=== PATIENT | female | born 1960 | race Caucasian/White ===

== ENCOUNTER → 2017-04-11 | Outpatient (CLI) | payer BC ==
--- NOTE | 2017-04-11 14:33 | MAMMOGRAPHY REPORT ---
BILATERAL DIGITAL DIAGNOSTIC MAMMOGRAM TOMOSYNTHESIS WITH CAD AND TARGETED LEFT ULTRASOUND: 04/11/2017 CLINICAL HISTORY: 56 year old woman presents for bilateral screening mammography. She also reports n ew single episode of one drop of spontaneous left bloody nipple discharge. TECHNIQUE: Bilateral breast tomosynthesis in addition to standard 2D mammography was performed. Spot magnification CC and ML views of the left subareolar breast were also obtained. Current study was a lso evaluated with a Computer Aided Detection (CAD) system. COMPARISON: Comparison is made to exams dated: 03/17/2016 mammogram - [facility], mammogram, and 07/29/2009 mammogram. BREAST COMPOSITION: There are scattered areas of fibroglandular density in both breasts. FINDINGS: The breast parenchyma pattern is similar to prior mammograms. There is a mixed density 2.4 cm focal asymmetry in the upper outer quadrant of the right breast, that appears similar on all avai lab prior mammograms dating back to at least 2007, therefore likely benign. There are a few benign rim calcifications in the breasts. The spot magnification views of the left subareolar breast demon strate 2 loosely grouped monomorphic round microcalcifications in the subareolar breast, 2 cm from th e nipple, that appear similar dating back to at least 2012, therefore likely benign. There are no ne w suspicious clustered microcalcifications, obvious new mass or focal area of architectural distortio n bilaterally. Targeted ultrasound was performed in the periareolar and retroareolar left breast. Sonographically n ormal tissue is seen without evidence of a discrete solid or cystic mass. No intraductal mass is bakari ntified. IMPRESSION: ACR BI-RADS CATEGORY 2: BENIGN, TARGETED ULTRASOUND ACR BI-RADS CATEGORY 2: BENIGN Stable bilateral mammograms. There is no mammographic or targeted sonographic evidence of malignancy . No suspicious mammographic or sonographic abnormality is seen to explain the single episode of one drop of spontaneous bloody left nipple discharge. Therefore, clinical follow-up is recommended and consultation with a breast surgeon and or fluid cytology may be useful. Otherwise, a 1 year screenin g mammogram is recommended. The patient has been verbally notified of the results. Approximately 10% of breast cancers are not detected with mammography. A negative mammographic report should not delay biopsy if a clinically suggestive mass is present. Sylwia roman/:04/11/2017 12:28:41 Coiler Operator: Kelsey CRUZ)(Mary), [facility] letter sent: Normal 1/2 BI-RADS Code: ACR BI-RADS Category 2: Benign Ultrasound BI-RADS: ACR BI-RADS Category 2: Benign
== END | disposition home or self-care (01) ==
LOC: C.MAMM 08:23
PROVIDERS: ATTEND Family Medicine
DX: N64.52 Nipple discharge (principal)

== ENCOUNTER → 2017-04-26 | Outpatient (CLI) | payer BC ==
--- NOTE | 2017-04-26 16:23 | DIAGNOSTIC IMAGING REPORT ---
CHEST 2 VIEWS ROUTINE CLINICAL HISTORY: COUGH COMPARISON STUDY: No previous studies for comparison. FINDINGS: The cardiac and mediastinal contours are normal. There is no failure. There is no focal pulmonary consolidation. There is a 13 mm left lower lung zone nodule versus summation. Nonemergent follow-up imaging is recommended. No pleural effusions are visualized.[ IMPRESSION: 1. 13 mm left lower lung zone nodule versus summation 2. No evidence of failure. No evidence of focal pulmonary consolidation. Electronically signed by: Nico Anne M.D. 04/26/2017 4:22 PM Dictated Date/Time: 04/26/2017 4:20 PM
== END | disposition home or self-care (01) ==
LOC: C.RAD1850 15:58
PROVIDERS: ATTEND Family Medicine
DX: R05 Cough (principal); R91.8 Other nonspecific abnormal finding of lung field

== ENCOUNTER 2022-08-03 07:48 | Observation (INO) ==
--- NOTE | 2022-07-14 14:48 | PAT Medication Instructions ---
Medication Instructions Date of Service July 14, 2022 Home Medications Medication Instructions Recorded BD Ultra-Fine Gela Pen Needle 32 #100 ea 12/01/21 gauge x 5/32" (pen needle, diabetic) blood sugar diagnostic (OneTouch #100 ea 04/16/22 Verio test strips) FreeStyle Jd 2 Sensor (flash #2 ea 04/29/22 glucose sensor) metformin 1,000 mg tablet 1,000 mg PO BID #180 tabs 05/10/22 empagliflozin 10 mg tablet 10 mg PO DAILY #90 tabs 06/24/22 (Jardiance) amlodipine 5 mg tablet 5 mg PO QPM losartan 100 mg tablet 100 mg PO HS naproxen sodium 220 mg capsule 220 mg PO BID PRN Pain omeprazole 20 mg capsule,delayed release 20 mg PO QAM levothyroxine 200 mcg tablet 200 mcg PO QAM turmeric 400 mg capsule 800 mg PO QPM loratadine 10 mg tablet (Claritin) 10 mg PO QAM lovastatin 20 mg tablet 20 mg PO HS metformin 1,000 mg tablet 1,000 mg PO BID empagliflozin 10 mg tablet (Jardiance) 10 mg PO DAILY cholecalciferol (vitamin D3) 10 mcg (400 unit) tablet (Vitamin D3) 5 mcg PO HS dulaglutide 3 mg/0.5 mL subcutaneous pen injector 3 mg subcut Q7D insulin degludec 200 unit/mL (3 mL) subcutaneous pen (Tresiba FlexTouch U-200 insulin) 42 unit subcut QAM Continue as directed dulaglutide 3 mg/0.5 mL subcutaneous pen injector 3 mg subcut Q7D ASK your surgeon for instructions naproxen sodium 220 mg capsule 220 mg PO BID PRN Pain STOP taking 2 weeks before surgery (or as soon as possible if surgery is within 2 weeks) turmeric 400 mg capsule 800 mg PO QPM DO NOT take the morning of surgery loratadine 10 mg tablet (Claritin) 10 mg PO QAM metformin 1,000 mg tablet 1,000 mg PO BID STOP taking 3 days before surgery empagliflozin 10 mg tablet (Jardiance) 10 mg PO DAILY Take morning of surgery With a small sip of water, OTHERWISE NOTHING TO EAT OR DRINK AFTER MIDNIGHT: omeprazole 20 mg capsule,delayed release 20 mg PO QAM levothyroxine 200 mcg tablet 200 mcg PO QAM Take evening before surgery amlodipine 5 mg tablet 5 mg PO QPM losartan 100 mg tablet 100 mg PO HS lovastatin 20 mg tablet 20 mg PO HS metformin 1,000 mg tablet 1,000 mg PO BID cholecalciferol (vitamin D3) 10 mcg (400 unit) tablet (Vitamin D3) 5 mcg PO HS Insulin Dependent Diabetic Patients * Test your blood sugar the morning of surgery * If Blood Sugar is GREATER THAN 150, take HALF of your regular dose of: insulin degludec 200 unit/mL (3 mL) subcutaneous pen (Tresiba FlexTouch U-200 insulin) > take 21 units * If Blood Sugar is LESS THAN 150, DO NOT TAKE ANY: insulin degludec 200 unit/mL (3 mL) subcutaneous pen (Tresiba FlexTouch U-200 insulin) Other Notes If you have any questions please call us at [phone] or [phone] or [phone] or [phone]
--- NOTE | 2022-07-15 13:14 | Anesthesiology Consultation ---
Date of Service July 15, 2022 Assessment & Plan (1) Encounter for pre-operative examination: Chart Review Chart Review: Acceptable Risk for Surgery (pending PCP clearance (07/15/22)) and Patient seen in Pre Admission Testing - Awaiting PCP clearance (seen 07/15/22) - Check BSG AM DOS Per PAT appt on 07/15/22, patient recently returned from [place] on 07/12/22 (drove/was on vacation). No known Covid positive exposures or Covid related symptoms. No known Covid infection in the past 90 days. Will leave to surgeon's discretion if preop Covid testing needed. Pt fully vaccinated for Covid. Educated on importance of using Covid precautions one week prior to surgery Teaching & Discussion Pre-Anesthesia Teaching/Discussion Notes: Instructed NPO after midnight before surgery,except medications with 15 cc of water. Medication instructions provided according to the PAT guidelines. History Surgery Operation Date: 08/03/22 07:00 Proposed Procedures p Right Total Knee Arthroplasty - Will Barry Rodriguez MD Height/Weight Height: 5 ft 6 in Weight: 138.1 kg Allergies Allergy/AdvReac Type Severity Reaction Status Date / Time ketoconazole Allergy Unknown Rash Verified 07/14/22 10:40 lactose Allergy Unknown LACTOSE Verified 07/14/22 10:40 INTOLERANT latex Allergy Unknown RASH/ITCHIN Verified 07/14/22 10:40 G oxycodone Allergy Unknown HIVES/DIFFICULTY Verified 07/14/22 10:40 BREATHING seasonal AdvReac Unknown congestion Uncoded 07/14/22 10:40 Medications Home Medications Medication Instructions Recorded Confirmed Last Taken amlodipine 5 mg tablet 5 mg PO QPM 04/05/19 07/14/22 Unknown losartan 100 mg tablet 100 mg PO HS 04/05/19 07/14/22 Unknown naproxen sodium 220 mg capsule 220 mg PO BID PRN Pain 09/01/20 07/14/22 Unknown omeprazole 20 mg capsule,delayed 20 mg PO QAM 09/01/20 07/14/22 Unknown release levothyroxine 200 mcg tablet 200 mcg PO QAM 02/03/21 07/14/22 Unknown blood sugar diagnostic (OneTouch #10 ea 10/13/21 04/26/22 Unknown Ultra Blue Test Strip) lancets 33 gauge (OneTouch Delica 10/13/21 04/26/22 Unknown Lancets) loratadine 10 mg tablet (Claritin) 10 mg PO QAM 10/13/21 07/14/22 Unknown lovastatin 20 mg tablet 20 mg PO HS 10/13/21 07/14/22 Unknown BD Ultra-Fine Gela Pen Needle 32 #100 ea 12/01/21 04/26/22 Unknown gauge x 5/32" (pen needle, diabetic) blood sugar diagnostic (OneTouch #100 ea 04/16/22 04/26/22 Unknown Verio test strips) FreeStyle Jd 2 Sensor (flash #2 ea 04/29/22 Unknown glucose sensor) metformin 1,000 mg tablet 1,000 mg PO BID #180 tabs 05/10/22 07/14/22 Unknown empagliflozin 10 mg tablet 10 mg PO DAILY #90 tabs 06/24/22 07/14/22 Unknown (Jardiance) cholecalciferol (vitamin D3) 10 5 mcg PO HS 07/14/22 07/14/22 Unknown mcg (400 unit) tablet (Vitamin D3) dulaglutide 3 mg/0.5 mL 3 mg subcut Q7D 07/14/22 07/14/22 Unknown subcutaneous pen injector insulin degludec 200 unit/mL (3 44 unit subcut QAM 07/14/22 07/15/22 Unknown mL) subcutaneous pen (Tresiba FlexTouch U-200 insulin) ciclopirox 8 % topical solution See Rx Instructions .Route .COMPLEX 07/15/22 07/15/22 Unknown fluticasone propionate 50 2 spray intranasal DAILY 07/15/22 07/15/22 Unknown mcg/actuation nasal spray,suspension turmeric 1,500 mg PO DAILY 07/15/22 07/15/22 Unknown Past Medical History Medical History (Updated 07/16/22 @ 09:16 by Shani Shearer PA-C) GERD (gastroesophageal reflux disease) Well controlled with Omeprazole History of COVID-19 02/2022, while on a cruise-tested, not hosp; mild w/fatigue-given paxlovid to tx>resolved. Hx of multiple pulmonary nodules Under observation Stable per patient Hx of renal calculi Resolved without intervention Hx of seasonal allergies Hx of thyroid cancer 1999. S/p radioactive iodine. 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) Stable per patient Exercise / Class Metabolic Activity III < 4 Walking/Shop/Light housework (one flight of stairs- no chest pain mild SOB ) Past Family History Family History Father Family history of diabetes mellitus Family hx of hypertension Grandmother Family history of diabetes mellitus Uterus cancer Brother Family history of diabetes mellitus Mother Family hx of hypertension Past Surgical History Surgical History History of esophagogastroduodenoscopy (EGD) History of surgery Exploratory parathyroid surgery in 2019 (additional parathyroid gland not removed) Hx of arthroscopic knee surgery bilat. Hx of colonoscopy Hx of parathyroidectomy 2000 S/P cholecystectomy "also had endometriosis taken care of at the same time" S/P hysterectomy 2012 S/P thyroid surgery 2000 Total Thyroidectomy Secondary thyroid CA. Past Anesthesia History No Hx of Anesthesia Complications and No Family Hx of Anesthesia Complications History of PONV No Hx of PONV and No Hx of Motion Sickness Social History Smoking Status: Never smoker Do You Dip or Chew Tobacco: No Hx Alcohol Use: Yes Alcohol type: beer and hard liquor alcohol intake frequency: holidays/special occasions only Hx Substance Use: No substance use type: does not use Review of Systems Occ cough secondary to post nasal drip Hx of hiatal hernia- occ reflux - well controlled with medication Snoring- no hx of sleep study Patient denies chest pain, shortness of breath, dyspnea on exertion, wheezing, palpitations. No hx of seizures, stroke, [place]. No hx of blood clots or blood transfusions Physical Exam Vital Signs VITALS BP 151/78 P 75 TEMP 97.8 SP02 95% RESP 16 Constitutional no acute distress ENMT Mouth: no TMJ clicking Thyromental Distance: > or= 3.5 Finger Breadths (3.5) Mallampati Class: III Missing molar Crowns to molars Neck + limited neck extension (minimal) Respiratory normal respiratory effort; no respiratory distress Auscultation: lungs clear to auscultation bilaterally; no wheezes Cardiovascular Rate/Rhythm: regular rate and regular rhythm Heart Sounds: no murmur Vessels: no carotid bruit Musculoskeletal Spine: no pain with cervical ROM Extremities: extremities normal to inspection Psychiatric Orientation: alert Lab Results Anesthesia Preop Results Results Anesthesia Widget: WBC 7.63 K/ul (4.8-10.8) 07/15/22 Hgb 12.0 g/dl (12.0-16.0) 07/15/22 Hct 37.7 % (34.1-44.9) 07/15/22 Plt 355 K/uL (130-400) 07/15/22 Na 137 mmol/L (136-145) 07/15/22 K 4.0 mmol/L (3.5-5.1) 07/15/22 Cl 101 mmol/L (98-107) 07/15/22 CO2 29 mmol/L (21-32) 07/15/22 BUN 23 mg/dl (6-23) 07/15/22 Creat 0.62 mg/dl (0.6-1.2) 07/15/22 Glucose Level 200 mg/dl (70-99(Fasting)) H 07/15/22 PT 10.7 Seconds (9.0-12.0) 07/15/22 PTT 26.3 Seconds (21.0-31.0) 07/15/22 INR 1.0 (0.9-1.1) 07/15/22 HA1c 6.5 % (4.5-5.6) H 07/15/22 Urine Color Yellow 07/15/22 Urine Appearance Clear (Clear) 07/15/22 Urine pH 5.0 (4.5-7.5) 07/15/22 Urine Specific [place] 1.040 (1.000-1.030) H 07/15/22 Urine Protein Negative (Negative) 07/15/22 Urine Glucose (UA) 3+ (Negative) H 07/15/22 Urine Ketones Trace (Negative) H 07/15/22 Urine Blood Negative (Negative) 07/15/22 Urine Nitrite Negative (Negative) 07/15/22 Urine Bilirubin Negative (Negative) 07/15/22 Urine Urobilinogen Negative (Negative) 07/15/22 Urine Leukocyte Esterase Negative (Negative) 07/15/22 Blood Type A Positive 07/15/22 Antibody Screen NEGATIVE 07/15/22 Testing Electrocardiogram Date: 12/09/21 Findings: + NSR @ (70bpm ) Leftward axis. RSR' pattern in V1. PRWP. Stress Test Date: 02/05/22 Type: exercise Resting EF: 65% Negative exercise stress echocardiogram for ischemia at 95% MPHR. Negative stress EKG for ischemia at 95% MPHR. Well below average exercise tolerance for age and gender, achieved 4.6 months. Other Testing Holter monitor 12/09/2021 = Basic rhythm was NSR. Rare isolated premature ventricular contractions. Very rare premature atrial complexes with a single 4 beat run of PAT. No pauses greater than 3 seconds or evidence of AV block. CT scan of thorax 02/19/2022 = Central airways are patent. No focal consolidation or pulmonary edema. No significant change in numerous pulmonary nodules measuring up to 1.9 cm, many of which have significantly increased from 07/08/2017. No pleural effusion or pleural nodularity.
--- NOTE | 2022-08-03 06:34 | History & Physical Bridge Note ---
Date of Service August 03, 2022 History & Physical Bridge Note I have examined the patient, reviewed the History & Physical and in the interval since the performance of the History & Physical I have noted the following changes of clinical significance: no changes noted Patient is aware of the risks, is asymptomatic, and tested negative for COVID- 19.
[~2022-08-03 07:48] MED LIST: ACETAMINOPHEN 500 MG TAB PO SCH; BUPIVACAINE 0.25% 30 ML VIAL ONE; BUPIVACAINE 0.5 % 5 MG/1 ML PF 10ML VIAL ONE; CeleBREX 200 MG CAP PO SCH; LR 500ML BOLUS, THEN 15ML/HR IV SCH; LR 60ML/HR IV SCH; ROPIVACAINE 0.5% HCL/PF 150 MG, BUPIVACAINE 0.75% MPF 20 ML, EPINEPHrine 0.15 MG, Ketor... INFIL SCH; Scopolamine 1 MG TDSY TD SCH; TRANEXAMIC ACID 1,000 MG **IV Intra-op IV SCH; TRANEXAMIC ACID 1,000 MG **IV Pre-op IV SCH
[2022-08-03] MEDS ORDERED: MIDAZOLAM HCL 1 MG/ML 2ML VIAL ONE (08:53)
[2022-08-03] MEDS ORDERED: ONDANSETRON INJ 2 MG/ML 2 ML VIAL IV PRN ×2 (09:04→13:43)
[2022-08-03] MEDS ORDERED: ePHEDrine sulfate 50 MG/ML AMP IV PRN (09:04)
[2022-08-03] MEDS ORDERED: ATROPINE SULFATE 0.1 MG/ML 10ML SYR IV PRN (09:04)
[2022-08-03] MEDS ORDERED: ORTHO JOINT ANESTHETIC ONE (09:59)
[2022-08-03] MEDS ORDERED: PROPOFOL IV EMULSION 10 MG/ML 20 ML VIAL IV ONE ×4 (10:03→13:11)
[2022-08-03] MEDS ORDERED: OXYMETAZOLINE 0.05% 30 ML BTL ONE (10:35)
[2022-08-03] MEDS ORDERED: PHENYLEPHRINE 100MCG/ML 5ML SYR ONE (10:53)
[2022-08-03] MEDS ORDERED: LABETALOL HCL IV 5 MG/ML 20ML IV ONE (11:53)
[2022-08-03] MEDS ORDERED: fentaNYL citrate 100 MCG/2 ML VIAL ONE ×3 (13:09→14:13)
[2022-08-03] MEDS ORDERED: ONDANSETRON INJ 2 MG/ML 2 ML VIAL ONE (13:11)
--- NOTE | 2022-08-03 13:28 | Post Operative Brief Note ---
Immediate Post Op Note v1 Date of Surgery August 03, 2022 Pre & Post Diagnosis Operation Date: 08/03/22 10:20 Pre-Op Diagnosis: Right Knee Osteoarthritis Post-Op Diagnosis: Right Knee Osteoarthritis I identified the patient and participated in the time-out.: Yes Procedure Operation Date: 08/03/22 10:20 Actual Procedures p Right Total Knee Arthroplasty(Right) - Will Rodriguez MD Surgeon Will Rodriguez MD Automobile Accessories Salesperson LORRIE Walters PA-C (No fellow avail) Estimated Blood Loss 175 Findings Consistent with Post-Op Diagnosis Fluids 1000 cc Specimens Right knee contents Anesthesia Type MAC Spinal Regional Complications none
--- NOTE | 2022-08-03 13:29 | Operative Report ---
Post Operative Report Pre & Post Diagnosis Operation Date: 08/03/22 10:20 Pre-Op Diagnosis: Right Knee Osteoarthritis Post-Op Diagnosis: Right Knee Osteoarthritis I identified the patient and participated in the time-out.: Yes Procedure Operation Date: 08/03/22 10:20 Actual Procedures p Right Total Knee Arthroplasty, imageless computer assisted navigation(Right) - Will Rodriguez MD Surgeon Will Rodriguez MD Bleach Supervisor LORRIE Walters PA-C (No fellow avail) Estimated Blood Loss 175 Findings See Below Examined Under Anesthesia: ROM -- There was 0 degrees to 100 degrees of flexion Ligamentous examination -- revealed stable Patricia, posterior drawer, varus and valgus stress at 0 and 30 degrees. Outerbridge Type IV changes of all 3 compartments. Fluids 1000 cc Specimens Right knee contents Anesthesia Type MAC Spinal Regional Complications none Indications This is a 61-year-old female who has clinical and radiographic findings consistent with osteoarthritis of the a right knee. I recommended that a right total knee replacement be performed. The patient understands the risks of surgery, which include but not limited to: bleeding, infection, re-operation, damage to nerves and arteries, continued knee pain, knee stiffness, DVT, and . The patient understands all of these instructions and explanations, all of his questions have been satisfactorily addressed and the patient has elected to proceed. Informed consent was signed. Description of Procedure IMPLANTS: 1. Femur: Triathlon #5 Right PS. 2. Tibia: Triathlon #5 [place]aton with 12 x 50 mm stem. 3. Insert: Triathlon #5 x 13 mm PS X3 poly. 4. Patella: Triathlon A35 x 10 mm X3 poly. 5. Palacos cement. LORRIE Walters PA-C is assisting with positioning, retracting, and closure due to fellow not available. Procedure: The patient was taken to the Operating Room and placed in the supine position after spinal and adductor canal nerve block was administered. My initials and a multidisciplinary time-out were used to identify the right leg as the correct operative limb. A tourniquet was placed high in the thigh. Prior to the incision, 3 grams of intravenous Ancef were given. The right leg was then prepped and draped in a standard sterile fashion. An Esmarch was used to exsanguinate the leg and the tourniquet was inflated to 250 mmHg. It was qu ickly deflated as it was a venous tourniquet. The planned mid-line 20 cm incision was created exposing the extensor mechanism. The medial parapatellar arthrotomy was made and the patella was everted. The patella was addressed first. It was prepared by reaming from 21 mm down to 12 mm. An A35 button was found to fit best. The peg holes were made in the standard fashion. The femur was addressed next and using computer assisted OrthoAlign with 3 degrees of flexion and 0 degrees of valgus, removing 9 mm in the standard fashion for the distal cut. The cut was made and the 4-in-1 cutting block for a size 5 femur was placed. These cuts and the cuts to place the box were made in the standard fashion. Our attention was then drawn to the tibia cut with using imageless computer assisted OrthoAlign, taking 2 mm from the medial low side. A #5 Tibial baseplate fit well. A trial with a 13 mm spacer showed excellent stability in both flexion and extension, with good ligament balance, and thumbs free patellar tracking. Range of motion of 0-120 degrees. The tibial baseplate was prepped for the keel and stem. A stem was used due to some areas of soft bone, to avoid subsidence. All components were removed. Hemostasis was obtained. 90 ml of total knee cocktail were injected into the soft tissues and periosteum. All surfaces were copiously irrigated prior to placement of the components. The femoral component followed by Tibial baseplate were cemented in place and a 13 mm trial placed. Next, the patellar button was placed using the same cement. Once the cement had cured, the range of motion and stability were unchanged. The 13 mm X3 poly was placed. Again the range of motion and stability were unchanged The extensor mechanism was closed with 1-0 Vicryl and 0 Stratafix with the knee bent approximately 60 degrees in a standard fashion. The peritenon and deep fascia was closed with 2-0 Vicryl. The subcutaneous layer was closed with 3-0 Vicryl. The skin was closed with Zipline and shield. The limb was cleaned and dried. 4x4 dressing was placed over top followed by ABDs, sterile Webril, and a foot to thigh Aniket bandage. The patient was then transferred to the Recovery Room in stable condition. The sponge and needle counts were correct. POST-OP INSTRUCTIONS: The patient will be WBAT. The patient will be admitted to the hospital. Labs will be obtained during the stay. DVT prophylaxis will included Eliquis for 6 weeks, TEDs, and mechanical foot pumps. The dressing will be changed prior to their discharge or postop day #2 and covered with a Silverlon dressing, whichever comes first as long as the incision as dry. I attest to the content of the Intraoperative Record and any orders documented therein. Any exceptions are noted below.
[2022-08-03] MEDS ORDERED: PHARMACY GLYCEMIC MGMT CONSULT PRN (13:43)
[2022-08-03] MEDS ORDERED: diphenhydrAMINE 50 MG/ML VIAL IV PRN (13:43)
[2022-08-03] MEDS ORDERED: ALUMINUM/MAGNESIUM SUSP 30 ML UDC PO PRN (13:43)
[2022-08-03] MEDS ORDERED: bisacodyL 10 MG SUPP PR PRN (13:43)
[2022-08-03] MEDS ORDERED: NALOXONE HCL 0.4 MG/1 ML VIAL/CARP IV PRN (13:43)
[2022-08-03] MEDS ORDERED: METOCLOPRAMIDE HCL INJ 5 MG/ML 2 ML VIAL IV PRN (13:43)
[2022-08-03] MEDS ORDERED: HYDROmorphone INJ 0.5 MG/0.5 ML SYR IV PRN (13:43)
[2022-08-03] MEDS ORDERED: MAGNESIUM HYDROXIDE SUSP 30 ML UDC PO PRN (13:43)
--- NOTE | 2022-08-03 13:43 | Operative Report ---
Post Operative Report Pre & Post Diagnosis Operation Date: 08/03/22 10:20 Pre-Op Diagnosis: Right Knee Pain Post-Op Diagnosis: Right Knee Pain I identified the patient and participated in the time-out.: Yes Procedure Operation Date: 08/03/22 10:20 Actual Procedures p Right Total Knee Arthroplasty(Right) - Will Rodriguez MD Surgeon Will Rodriguez MD Marine Engine Mechanic LORRIE Walters PA-C (No fellow avail) Estimated Blood Loss 175 Findings Consistent with Post-Op Diagnosis Specimens none Description of Procedure I was present during the entire procedure assisting with positioning, prepping, draping, wound retraction, wound closure, and dressing application. No fellow present. Please see Dr. Rodriguez procedure note for specifics of the case. I attest to the content of the Intraoperative Record and any orders documented therein. Any exceptions are noted below.
[2022-08-03] MEDS ORDERED: NAPROXEN SODIUM 220 MG PO PRN (13:48)
[2022-08-03] MEDS ORDERED: DULAGLUTIDE 3 MG/0.5 ML SQ SCH (14:00)
[2022-08-03] MEDS: fentaNYL citrate 100 MCG/2 ML VIAL IV PRN ×2 (14:15→14:33)
--- NOTE | 2022-08-03 14:35 | XRay Report ---
XR knee RT 1 or 2V routine HISTORY: 61 years-old Female Surgical Post Op right knee total joint arthroplasty COMPARISON: 05/13/2022 TECHNIQUE: 2 views of the right knee FINDINGS: Total joint arthroplasty with patellar resurfacing. Expected postoperative soft tissue swelling with deep tissue air. No acute fracture, dislocation or other expected opaque foreign body. IMPRESSION: Total joint arthroplasty with expected postoperative changes. ACT 112: Negative or not required by law. The above report was generated using voice recognition software. It may contain grammatical, syntax o r spelling errors. Electronically signed by: Kan Solano M.D. 08/03/2022 2:34 PM
[2022-08-03] MEDS ORDERED: GLUCOSE 10 TAB/TUBE PO PRN (15:07)
[2022-08-03] MEDS ORDERED: GLUCAGON FOR INJ 1 MG VIAL SQ PRN (15:07)
[2022-08-03] MEDS ORDERED: DEXTROSE 50% 50 ML SYRINGE IV PRN (15:07)
[2022-08-03] MEDS ORDERED: CARBOHYDRATES FOR HYPOGLYCEMIA PO PRN (15:07)
[2022-08-03] MEDS ORDERED: GLUCOSE 40% GEL 15 GM TUBE PO PRN (15:07)
--- NOTE | 2022-08-03 15:07 | Hospitalist Consultation ---
Date of Consultation August 03, 2022 Assessment & Plan (1) Osteoarthritis: Patient underwent right total knee arthroplasty by Dr. Rodriguez on 10/04/2021. Aspirin twice daily was chosen for DVT prevention (2) Controlled type 2 diabetes mellitus: Patient typically is on dulaglutide empagliflozin and metformin these are all held. Patient basal bolus insulin. Should be on a diabetic diet. Patient typically is on Tresiba 44 units stable convert this to Lantus 20 units twice daily (3) Hypertension: Continues on amlodipine and losartan to be reduced by 50% to avoid post operative orthostatic hypotension. (4) Hyperlipidemia: Continue on lovastatin (5) Hypothyroidism: Continues on Synthroid last TSH check was slightly low in October 20 with a normal free T4. Patient does follow with primary care on this issue History of Present Illness Attending Physician: Will Rodriguez MD History of Present Illness 61-year-old female underwent right total knee arthroplasty on 08/03/[address] Will Rodriguez. Patient has a prehospital history of hypertension diabetes and dyslipidemia. Patient typically takes empagliflozin dulaglutide and metformin for her diabetes. She is on amlodipine and losartan for blood pressure control and lovastatin for dyslipidemia patient is stress echocardiogram February 17 which was negative for ischemia Allergies Allergy/AdvReac Type Severity Reaction Status Date / Time ketoconazole Allergy Unknown Rash Verified 08/03/22 08:08 lactose Allergy Unknown LACTOSE Verified 08/03/22 08:08 INTOLERANT latex Allergy Unknown RASH/ITCHIN Verified 08/03/22 08:08 G oxycodone Allergy Unknown HIVES/DIFFICULTY Verified 08/03/22 08:08 BREATHING seasonal AdvReac Unknown congestion Uncoded 08/03/22 08:08 Home Medications Medication Instructions Recorded Confirmed Type amlodipine 5 mg tablet 5 mg PO QPM 04/05/19 08/03/22 History losartan 100 mg tablet 100 mg PO HS 04/05/19 08/03/22 History naproxen sodium 220 mg capsule 220 mg PO BID PRN Pain 09/01/20 08/03/22 History omeprazole 20 mg capsule,delayed 20 mg PO QAM 09/01/20 08/03/22 History release levothyroxine 200 mcg tablet 200 mcg PO QAM 02/03/21 08/03/22 History blood sugar diagnostic (HigherNextTouch #10 ea 10/13/21 07/27/22 History Ultra Blue Test Strip) lancets 33 gauge (HigherNextTouch Delica 10/13/21 07/27/22 History Lancets) loratadine 10 mg tablet (Claritin) 10 mg PO QAM 10/13/21 08/03/22 History lovastatin 20 mg tablet 20 mg PO HS 10/13/21 08/03/22 History BD Ultra-Fine Gela Pen Needle 32 #100 ea 12/01/21 07/27/22 Rx gauge x 5/32" (pen needle, diabetic) blood sugar diagnostic (OneTouch #100 ea 04/16/22 07/27/22 Rx Verio test strips) FreeStyle Jd 2 Sensor (flash #2 ea 04/29/22 07/27/22 Rx glucose sensor) metformin 1,000 mg tablet 1,000 mg PO BID #180 tabs 05/10/22 08/03/22 Rx dulaglutide 3 mg/0.5 mL 3 mg subcut Q7D 07/14/22 08/03/22 History subcutaneous pen injector insulin degludec 200 unit/mL (3 44 unit subcut QAM 07/14/22 08/03/22 History mL) subcutaneous pen (Tresiba FlexTouch U-200 insulin) ciclopirox 8 % topical solution See Rx Instructions .Route .COMPLEX 07/15/22 08/03/22 History fluticasone propionate 50 2 spray intranasal DAILY 07/15/22 08/03/22 History mcg/actuation nasal spray,suspension turmeric 1,500 mg PO DAILY 07/15/22 08/03/22 History blood-glucose sensor (FreeStyle #2 ea 07/27/22 07/27/22 Rx Jd 3 Sensor device) cholecalciferol (vitamin D3) 50 50 mcg PO DAILY 07/27/22 08/03/22 History mcg (2,000 unit) capsule empagliflozin 25 mg tablet 25 mg PO DAILY #90 tabs 07/27/22 08/03/22 Rx (Jardiance) Patient History Medical History (Updated 08/03/22 @ 15:04 by Delonte Hayward MD) GERD (gastroesophageal reflux disease) Well controlled with Omeprazole History of COVID-19 02/2022, while on a cruise-tested, not hosp; mild w/fatigue-given paxlovid to tx>resolved. Hx of multiple pulmonary nodules Under observation Stable per patient Hx of renal calculi Resolved without intervention Hx of seasonal allergies Hx of thyroid cancer 1999. S/p radioactive iodine. 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 Currently under observation Hypertension Hypothyroidism Surgically induced Surgical History History of esophagogastroduodenoscopy (EGD) History of surgery Exploratory parathyroid surgery in 2019 (additional parathyroid gland not removed) Hx of arthroscopic knee surgery bilat. Hx of colonoscopy Hx of parathyroidectomy 2000 S/P cholecystectomy "also had endometriosis taken care of at the same time" S/P hysterectomy 2012 S/P thyroid surgery 2000 Total Thyroidectomy Secondary thyroid CA. 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 Beliefs That Will Affect Care: None marital status: Current Living Situation: Spouse current occupational status: employed How many Children do You have Comment: 1 Other Information That Helps Us Care for You: No Feels Safe at Home: Yes Safety Concerns: Feels Safe At This Time Assistive Devices: Glasses Review of Systems Review of Systems: Mild distress and fatigue no headache, no visual changes no speech or swallowing issues no chest pain, pressure or palpitations no shortness of breath, cough or wheezes no abdominal pain, nausea or vomiting, diarrhea or constipation no dysuria, hematuria or frequency right knee with splint in place, pain is controlled no back pain, CVA tenderness or radicular pain no bruising, bleeding or rashes no focal signs of weakness or numbness or altered sensation no complaints of anxiety or depression.. Physical Exam Physical Exam: The patient appeared well nourished and normally developed. Vital signs as documented. Head exam is normocephalic atraumatic Neck is without JVD, thyromegaly, or carotid bruits. Lungs are clear to auscultation, no focal loss of breath sounds Cardiac exam, Rhythm is regular.. No murmurs, rubs or gallops. Abdominal exam reveals normal bowel sounds, soft non tender, no masses Extremities good distal strength and sensation of both feet Neurologic exam is alert and oriented, no focal loss of strength or sensation Skin is without bruises or rashes Psychologically is without concerns for anxiety or depression.. Results & Data Results & Data ([facility]) Vital Signs (Past 12 Hours) Vital Signs Temp Pulse Pulse Resp BP Pulse Ox O2 Del Method 08/03/22 14:50 64 18 134/71 96 Nasal Cannula 08/03/22 14:40 60 14 134/67 96 Nasal Cannula 08/03/22 14:30 60 15 132/66 95 Nasal Cannula 08/03/22 14:20 61 15 129/66 97 Oxymask 08/03/22 14:10 57 L 16 111/60 97 Oxymask 08/03/22 14:00 64 12 143/68 H 98 Oxymask 08/03/22 13:50 63 12 104/43 L 98 Oxymask 08/03/22 13:46 97.5 F L 60 12 109/60 98 Oxymask 08/03/22 08:40 Room Air 08/03/22 08:19 98.1 F 80 20 146/84 H 96 Room Air O2 Flow Rate 08/03/22 14:50 2 08/03/22 14:40 2 08/03/22 14:30 2 08/03/22 14:20 3 08/03/22 14:10 3 08/03/22 14:00 6 08/03/22 13:50 6 08/03/22 13:46 6 08/03/22 08:40 08/03/22 08:19 PG Care Time/CCT Total # of Minutes Spent Total Time Spent with Patient: Total time spent is greater than 50% in coordination of care (as documented) at patient's floor/unit and/or counseling patient: Coding Level of Care Code 44523 Inpt Consult Level 3 Diagnoses Osteoarthritis M19.90 Controlled type 2 diabetes mellitus E11.9 Hypertension I10 Hyperlipidemia E78.5 Hypothyroidism E03.9
--- NOTE | 2022-08-03 16:13 | Anesthesiology Progress Note ---
Date of Service August 03, 2022 Anesthesia Post Procedure Vital Signs Vital Signs: Temp Pulse Pulse Resp BP Pulse Ox O2 Del Method 08/03/22 15:35 66 16 133/70 100 Nasal Cannula 08/03/22 15:05 63 14 122/64 98 Nasal Cannula 08/03/22 14:50 64 18 134/71 96 Nasal Cannula 08/03/22 14:40 60 14 134/67 96 Nasal Cannula 08/03/22 14:30 60 15 132/66 95 Nasal Cannula 08/03/22 14:20 61 15 129/66 97 Oxymask 08/03/22 14:10 57 L 16 111/60 97 Oxymask 08/03/22 14:00 64 12 143/68 H 98 Oxymask 08/03/22 13:50 63 12 104/43 L 98 Oxymask 08/03/22 13:46 36.4 C L 60 12 109/60 98 Oxymask 08/03/22 08:40 Room Air 08/03/22 08:19 36.7 C 80 20 146/84 H 96 Room Air O2 Flow Rate 08/03/22 15:35 2 08/03/22 15:05 2 08/03/22 14:50 2 08/03/22 14:40 2 08/03/22 14:30 2 08/03/22 14:20 3 08/03/22 14:10 3 08/03/22 14:00 6 08/03/22 13:50 6 08/03/22 13:46 6 08/03/22 08:40 08/03/22 08:19 Pain Intensity Knee: Pain Intensity: 3 Transfer of Care Handoff Completed per policy Notes Mental Status: alert / awake / arousable and participated in evaluation Patient Amnestic to Procedure: Yes Nausea / Vomiting: adequately controlled Pain: adequately controlled and improving with treatment Airway Patency, RR, SpO2: stable & adequate BP & HR: stable & adequate Hydration State: stable & adequate Neuraxial Anesthesia: was administered and sensory block is resolving Anesthetic Complications: no major complications apparent and Pt Satisfied with anesthetic care
--- NOTE | 2022-08-03 16:46 | Electrocardiogram Report ---
Test Reason : Blood Pressure : / mmHG Vent. Rate : 098 BPM Atrial Rate : 098 BPM P-R Int : 154 ms QRS Dur : 136 ms QT Int : 394 ms P-R-T Axes : 034 -41 001 degrees QTc Int : 503 ms Poor data quality, interpretation may be adversely affected Normal sinus rhythm Possible Left atrial enlargement Left axis deviation Right bundle branch block Abnormal ECG No previous ECGs available Confirmed by Stan Noe ([id number]) on 08/03/2022 4:46:00 PM Referred By: Will Rodriguez Confirmed By:Stan Noe
[2022-08-03] MEDS: ACETAMINOPHEN 500 MG TAB PO SCH ×2 (16:53→23:50)
[2022-08-03] MEDS: Scopolamine CHECK PATCH PLACEMENT SCH (16:53)
[2022-08-03] MEDS: FERROUS GLUCONATE 324 MG TAB PO SCH (16:54)
[2022-08-03] MEDS: ASCORBIC ACID 500 MG TAB PO SCH (16:54)
[2022-08-03] MEDS: SODIUM CHLORIDE 0.9% 1000ML 1,000 ML IV SCH (16:58)
[2022-08-03] MEDS ORDERED: KETOROLAC TROMETHAMINE 15 MG/ML VIAL IV SCH (18:00)
[2022-08-03] MEDS: ceFAZolin 2000MG 2,000 MG/15 ML SYR IV SCH (18:16)
[2022-08-03] MEDS: INSULIN ASPART PER UNIT SC SCH ×2 (18:16→20:54)
--- NOTE | 2022-08-03 19:15 | Pharmacy Report ---
Pharmacy Glycemic Short Note 2 - Date of Service August 03, 2022 - Glycemic Short BSG Results (Last 24 hours): 08/03/22 08/03/22 08/03/22 08:23 13:49 17:12 POC Glucose 170 H 196 H 176 H OUTPATIENT ANTIDIABETIC REGIMEN: * tresiba 44 units Qam, trulicity, jardiance, metformin * A1c 6.5% ASSESSMENT: * 61 year old now s/p right total knee arthroplasty, POD 0 - pharmacy consulted for glycemic management. Confirmed with RN that patient only took half of home basal insulin dose this morning. Post-op BSGs in 180s - diet ordered with dinner. Plan to order dose of Lantus for HS to make up home total dose outpat ient. Likely will transition back to once daily basal insulin tomorrow * Will utilize novolog scale based upon outpatient insulin dose PLAN FOR INPATIENT GLYCEMIC CONTROL: * Hold outpatient oral diabetes medications * Basal insulin * Lantus 21 units - STEREOTYPER this morning taken * Lantus 20 units x 1 hs * Bolus insulin * NovoLog per scale ACHS or Q6hrs while NPO * Goal Range: Low 110 mg/dL - High 140 mg/dL * Correction Factor: 20 mg/dL/unit * Nutritional / Prandial insulin per carb ratio of 1 unit per 6 grams CHO consumed
[2022-08-03] MEDS ORDERED: TRANEXAMIC ACID / 0.7% NACL 1,000 MG/100 ML BAG IV SCH (20:00)
[2022-08-03] MEDS: DOCUSATE SODIUM 100 MG CAP PO SCH (20:18)
[2022-08-03] MEDS ORDERED: metFORMIN HCL 500 MG TAB PO SCH (21:00)
[2022-08-03] MEDS ORDERED: SENNA 8.6 MG TAB PO SCH (21:00)
[2022-08-03] MEDS ORDERED: LANTUS PER UNIT CHARGE SQ SCH (21:00)
[2022-08-03] MEDS ORDERED: ASPIRIN 81 MG ECTAB PO SCH (21:00)
[2022-08-03] MEDS ORDERED: LOSARTAN POTASSIUM 50 MG TAB PO SCH ×2 (21:00)
[2022-08-03] MEDS ORDERED: LOVASTATIN 20 MG TAB PO SCH (21:00)
--- NOTE | 2022-08-03 23:30 | Orthopedic Progress Note ---
Date of Service August 03, 2022 Assessment & Plan (1) Osteoarthritis: Plan: POD #0 s/p Right TKA, doing as well as expected. Resume diet. WBAT with walker. OOB to chair. Continue pain control. Check labs tomorrow. Will change dressing prior to d/c to Silverlon if incision is dry; otherwise replace with DSD. DVT prophylaxis: TEDs 3 weeks, foot pumps while in hospital, Eliquis 2.5 mg BID for 6 weeks. PT/OT. Appreciate Medicine input. D/C planning. Admission and Anticipated Discharge Date Admission Date: August 03, 2022 Subjective Doing alright as long as I don't move. Review of Systems Review of Systems: All systems reviewed & are unremarkable except as noted in HPI & below Physical Exam Physical Exam: RLE: BCR < 2 sec. Sensation to light touch intact distally. Wiggling ankle and toes. Calf soft and non-tender. Dressing is clean, dry, intact. Sitting comfortably in a chair. Results & Data ([facility]) Vital Signs (Past 12 Hours) Vital Signs Temp Pulse Pulse Resp BP Pulse Ox O2 Del Method 08/03/22 23:06 37.1 C 73 16 148/73 H 92 Room Air 08/03/22 20:16 71 120/68 08/03/22 19:06 37 C 78 16 142/81 H 92 Room Air 08/03/22 16:20 Room Air 08/03/22 16:20 36.5 C 69 16 118/70 94 Room Air 08/03/22 15:35 66 16 133/70 100 Nasal Cannula 08/03/22 15:05 63 14 122/64 98 Nasal Cannula 08/03/22 14:50 64 18 134/71 96 Nasal Cannula 08/03/22 14:40 60 14 134/67 96 Nasal Cannula 08/03/22 14:30 60 15 132/66 95 Nasal Cannula 08/03/22 14:20 61 15 129/66 97 Oxymask 08/03/22 14:10 57 L 16 111/60 97 Oxymask 08/03/22 14:00 64 12 143/68 H 98 Oxymask 08/03/22 13:50 63 12 104/43 L 98 Oxymask 08/03/22 13:46 36.4 C L 60 12 109/60 98 Oxymask O2 Flow Rate 08/03/22 23:06 12/06/22 20:16 08/03/22 19:06 08/03/22 16:20 08/03/22 16:20 08/03/22 15:35 2 08/03/22 15:05 2 08/03/22 14:50 2 08/03/22 14:40 2 08/03/22 14:30 2 08/03/22 14:20 3 08/03/22 14:10 3 08/03/22 14:00 6 08/03/22 13:50 6 08/03/22 13:46 6 Laboratory Results Laboratory Results POC Glucose 213 mg/dl (70-99) H 08/03/22 20:41 SARS-CoV-2, RNA, NAAT NEGATIVE (NEGATIVE) 08/03/22 Unknown Impressions Knee X-Ray 08/03/22 13:46 XR knee RT 1 or 2V routine HISTORY: 61 years-old Female Surgical Post Op right knee total joint arthroplasty COMPARISON: 05/13/2022 TECHNIQUE: 2 views of the right knee FINDINGS: Total joint arthroplasty with patellar resurfacing. Expected postoperative soft tissue swelling with deep tissue air. No acute fracture, dislocation or other expected opaque foreign body. IMPRESSION: Total joint arthroplasty with expected postoperative changes. ACT 112: Negative or not required by law. The above report was generated using voice recognition software. It may contain grammatical, syntax or spelling errors. Electronically signed by: Kan Solano M.D. 08/03/2022 2:34 PM
[2022-08-04] MEDS: SODIUM CHLORIDE 0.9% 1000ML 1,000 ML IV SCH (02:19)
[2022-08-04] MEDS: ceFAZolin 2000MG 2,000 MG/15 ML SYR IV SCH (03:19)
[2022-08-04] MEDS ORDERED: LEVOTHYROXINE SODIUM 200 MCG TABLET PO SCH (06:30)
--- NOTE | 2022-08-04 07:17 | Hospitalist Progress Note ---
Date of Service August 04, 2022 Assessment & Plan (1) Osteoarthritis: Plan: Patient underwent right total knee arthroplasty by Dr. Rodriguez on 10/04/2021. Aspirin twice daily was chosen for DVT prevention (2) Controlled type 2 diabetes mellitus: Plan: Patient typically is on dulaglutide empagliflozin and metformin these are all held. Patient basal bolus insulin. Should be on a diabetic diet. Patient typically is on Tresiba 44 units stable convert this to Lantus 20 units twice daily (3) Hypertension: Plan: Continues on amlodipine and losartan to be reduced by 50% to avoid post operative orthostatic hypotension. (4) Hyperlipidemia: Plan: Continue on lovastatin (5) Hypothyroidism: Plan: Continues on Synthroid last TSH check was slightly low in October 20 with a normal free T4. Patient does follow with primary care on this issue Admission and Anticipated Discharge Date Admission Date: August 03, 2022 Review of Systems Review of Systems: Mild distress and fatigue no headache, no visual changes no speech or swallowing issues no chest pain, pressure or palpitations no shortness of breath, cough or wheezes no abdominal pain, nausea or vomiting, diarrhea or constipation no dysuria, hematuria or frequency no focal joint pain or swelling no back pain, CVA tenderness or radicular pain no bruising, bleeding or rashes no focal signs of weakness or numbness or altered sensation no complaints of anxiety or depression.. Physical Exam Physical Exam: The patient appeared well nourished and normally developed. Vital signs as documented. Head exam is normocephalic atraumatic Neck is without JVD, thyromegaly, or carotid bruits. Lungs are clear to auscultation, no focal loss of breath sounds Cardiac exam, Rhythm is regular.. No murmurs, rubs or gallops. Abdominal exam reveals normal bowel sounds, soft non tender, no masses Extremities are nonedematous and both pedal pulses are present Neurologic exam is alert and oriented, no focal loss of strength or sensation Skin is without bruises or rashes Psychologically is without concerns for anxiety or depression.. Results & Data Results & Data ([facility]) Vital Signs (Past 12 Hours) Vital Signs Temp Pulse Resp BP Pulse Ox O2 Del Method 08/04/22 03:33 98.8 F 73 16 113/72 95 Room Air 08/03/22 19:30 Room Air 08/03/22 23:06 98.8 F 73 16 148/73 H 92 Room Air 08/03/22 20:16 71 120/68 PG Care Time/CCT Total # of Minutes Spent Total Time Spent with Patient: Total time spent is greater than 50% in coordination of care (as documented) at patient's floor/unit and/or counseling patient: Coding Diagnoses Osteoarthritis M19.90 Controlled type 2 diabetes mellitus E11.9 Hypertension I10 Hyperlipidemia E78.5 Hypothyroidism E03.9
[2022-08-04 08:17] LABS: Hematocrit (blood only) 30.3 % (34.1-44.9); Hemoglobin 9.2 g/dl (12.0-16.0); Mean Corpuscular Hemoglobin 26.4 pg (25.0-34.0); Mean Corpuscular Hgb Conc 30.4 g/dL (32.0-36.0); Mean Corpuscular Volume 86.8 fL (80.0-100.0); Mean Platelet Volume 9.7 fL (9.4-12.3); Platelet Count 317 K/uL (130-400); RDW Coefficient of Variation 14.8 % (11.5-14.5); RDW Standard Deviation 47.4 fL (36.4-46.3); Red Blood Count 3.49 M/uL (3.93-5.22)
[2022-08-04 08:40] LABS: BUN Creatinine Ratio 39.1 (10-20); Calcium 9.7 mg/dl (8.5-10.1); Creatinine Clr Calc Pharmacy 183.1 ml/min; Est GFR (African American) 124.4 ml/min; Est GFR (Non-African American) 107.4 ml/min; Potassium 4.5 mmol/L (3.5-5.1)
[2022-08-04] MEDS: ACETAMINOPHEN 500 MG TAB PO SCH (08:50)
[2022-08-04] MEDS: INSULIN ASPART PER UNIT SC SCH ×2 (08:50→13:32)
[2022-08-04] MEDS: DOCUSATE SODIUM 100 MG CAP PO SCH (08:52)
[2022-08-04] MEDS: FERROUS GLUCONATE 324 MG TAB PO SCH (08:52)
[2022-08-04] MEDS: ASCORBIC ACID 500 MG TAB PO SCH (08:53)
[2022-08-04] MEDS ORDERED: PANTOprazole 40 MG TAB PO SCH (09:00)
[2022-08-04] MEDS ORDERED: MULTIVITAMIN TAB PO SCH (09:00)
[2022-08-04] MEDS ORDERED: FLUTICASONE PROPIONATE NA SPR 16 GM BTL NAE SCH (09:00)
[2022-08-04] MEDS ORDERED: CHOLECALCIFEROL 1,000 UNITS 25 MCG TAB PO SCH (09:00)
[2022-08-04] MEDS ORDERED: Flu Vaccine (Fluarix) 0.5mL SYR (Standard Dose) IM ONE (09:00)
[2022-08-04] MEDS ORDERED: EMPAGLIFLOZIN 25 MG TAB PO SCH (09:00)
[2022-08-04] MEDS ORDERED: NON-FORMULARY MEDICATION (Turmeric 500 MG) PO SCH (09:00)
[2022-08-04] MEDS ORDERED: APIXABAN 2.5 MG TAB PO SCH (09:00)
[2022-08-04] MEDS ORDERED: NON-FORMULARY MEDICATION (Insulin Degludec [Tresiba Flextouch U-200] 200 unit/mL (3 mL) in SQ SCH (09:00)
[2022-08-04] MEDS ORDERED: LORATADINE 10 MG TAB PO SCH (09:00)
[2022-08-04] MEDS: Scopolamine CHECK PATCH PLACEMENT SCH ×2 (09:05)
[2022-08-04 09:31] LABS: Estimated Average Glucose 146 mg/dl; Hemoglobin A1C 6.7 % (4.5-5.6)
[2022-08-04] MEDS: traMADol HCL 50 MG TABLET PO PRN ×2 (10:41→14:56)
--- NOTE | 2022-08-04 11:26 | Orthopedic Progress Note ---
Date of Service August 04, 2022 Assessment & Plan (1) Osteoarthritis: Plan: POD #1 s/p Right TKA, doing as well as expected. Continue diet. WBAT with walker. OOB to chair. Continue pain control. H/H stable New pressure dressing was applied to her right knee today. We will plan for follow-up on Tuesday to apply Silverlon as an outpatient once drainage has stopped. DVT prophylaxis: TEDs 3 weeks, foot pumps while in hospital, Eliquis 2.5 mg BID for 6 weeks. PT/OT. Appreciate Medicine input. D/C planning. - plan for home, possible today with HH/Home PT. Will reassess possible discharge after seen by PT and OT. Admission and Anticipated Discharge Date Admission Date: August 03, 2022 Supervising Physician Co-Signing Physician Notes I, Dr. Rodriguez, saw and examined the patient with my PA and discussed the management with my PA. I reviewed my PAs note and agree with the documented findings and the plan of care I developed. Subjective Doing well today, sitting in bedside chair. Just participated in PT. Feels that she's doing okay. at bedside. Seen today by myself and Dr. Rodriguez. Physical Exam Musculoskeletal: Postoperative dressings are soiled through the Aniket bandage with bloody drainage. Removed today and incision is intact. There are some surrounding serous bloody drainage. Zipline is in place. A new pressure dressing was applied to the right knee today. We will hold off on applying the Silverlon. No calf tenderness. No significant distal edema. Still sensation is normal. Distal pulses are 1+. Full range of motion of her ankle and toes. Strength is 5/5. Results & Data ([facility]) Vital Signs (Past 12 Hours) Vital Signs Temp Pulse Resp BP Pulse Ox O2 Del Method 08/04/22 07:15 Room Air 08/04/22 07:19 36.7 C 68 18 126/74 95 Room Air 08/04/22 03:33 37.1 C 73 16 113/72 95 Room Air Laboratory Results 08/04/22 08/04/22 08/04/22 Range/Units 08:14 06:59 06:59 WBC (4.8-10.8) K/ul RBC (3.93-5.22) M/uL Hgb (12.0-16.0) g/dl Hct (34.1-44.9) % MCV (80.0-100.0) fL MCH (25.0-34.0) pg MCHC (32.0-36.0) g/dL RDW Std Deviation (36.4-46.3) fL RDW Coeff of Richard (11.5-14.5) % Plt Count (130-400) K/uL MPV (9.4-12.3) fL Sodium (136-145) mmol/L Potassium (3.5-5.1) mmol/L Chloride (98-107) mmol/L Carbon Dioxide (21-32) mmol/L Anion Gap (3-11) BUN (6-23) mg/dl Creatinine (0.6-1.2) mg/dl Est Cr Clr Drug Dosing ml/min Est GFR ( Amer) ml/min Est GFR (Non-Af Amer) ml/min BUN/Creatinine Ratio (10-20) Glucose (70-99(Fasting)) mg/dl POC Glucose 159 H (70-99) mg/dl Estimat Average Glucose 146 mg/dl Hemoglobin A1c 6.7 H (4.5-5.6) % Calcium (8.5-10.1) mg/dl Hepatitis C Ab (EIA) Pending Hep C Ab Signal/Cutoff Pending 08/04/22 08/04/22 08/03/22 Range/Units 06:59 06:59 20:41 WBC 14.20 H (4.8-10.8) K/ul RBC 3.49 L (3.93-5.22) M/uL Hgb 9.2 L (12.0-16.0) g/dl Hct 30.3 L (34.1-44.9) % MCV 86.8 (80.0-100.0) fL MCH 26.4 (25.0-34.0) pg MCHC 30.4 L (32.0-36.0) g/dL RDW Std Deviation 47.4 H (36.4-46.3) fL RDW Coeff of Richard 14.8 H (11.5-14.5) % Plt Count 317 (130-400) K/uL MPV 9.7 (9.4-12.3) fL Sodium 137 (136-145) mmol/L Potassium 4.5 (3.5-5.1) mmol/L Chloride 105 (98-107) mmol/L Carbon Dioxide 29 (21-32) mmol/L Anion Gap 3 (3-11) BUN 18 (6-23) mg/dl Creatinine 0.46 L (0.6-1.2) mg/dl Est Cr Clr Drug Dosing 183.1 ml/min Est GFR ( Amer) 124.4 ml/min Est GFR (Non-Af Amer) 107.4 ml/min BUN/Creatinine Ratio 39.1 H (10-20) Glucose 144 H (70-99(Fasting)) mg/dl POC Glucose 213 H (70-99) mg/dl Estimat Average Glucose mg/dl Hemoglobin A1c (4.5-5.6) % Calcium 9.7 (8.5-10.1) mg/dl Hepatitis C Ab (EIA) Hep C Ab Signal/Cutoff 08/03/22 08/03/22 Range/Units 17:12 13:49 WBC (4.8-10.8) K/ul RBC (3.93-5.22) M/uL Hgb (12.0-16.0) g/dl Hct (34.1-44.9) % MCV (80.0-100.0) fL MCH (25.0-34.0) pg MCHC (32.0-36.0) g/dL RDW Std Deviation (36.4-46.3) fL RDW Coeff of Richard (11.5-14.5) % Plt Count (130-400) K/uL MPV (9.4-12.3) fL Sodium (136-145) mmol/L Potassium (3.5-5.1) mmol/L Chloride (98-107) mmol/L Carbon Dioxide (21-32) mmol/L Anion Gap (3-11) BUN (6-23) mg/dl Creatinine (0.6-1.2) mg/dl Est Cr Clr Drug Dosing ml/min Est GFR ( Amer) ml/min Est GFR (Non-Af Amer) ml/min BUN/Creatinine Ratio (10-20) Glucose (70-99(Fasting)) mg/dl POC Glucose 176 H 196 H (70-99) mg/dl Estimat Average Glucose mg/dl Hemoglobin A1c (4.5-5.6) % Calcium (8.5-10.1) mg/dl Hepatitis C Ab (EIA) Hep C Ab Signal/Cutoff
[2022-08-04] MEDS ORDERED: LANTUS PER UNIT CHARGE SQ SCH (11:45)
[2022-08-04] MEDS ORDERED: amLODIPine BESYLATE 5 MG TAB PO SCH (12:00)
--- NOTE | 2022-08-05 16:23 | Discharge Summary ---
Date of Service August 05, 2022 Admission HPI Per Admitting Provider Pt was seen and examined bedside. POD #1 s/p right knee replacement. Pt was admitted for observation. No major events over night. Vitals are stable. Labs unremarkable. X-rays show normal post operative changed. Pt reports they are doing well and pain is controlled. They are tolerating PO intake and voiding adequate amounts. Working well with PT/OT. Pt denies F/C, N/V/D, SOB, CP. Pt deemed medically stable and ready for discharge. Admission Exam Per Admitting Provider General: Pt laying in hospital bed AA&O, in NAD, calm and cooperative during exam Lower Extremity: Dressing in tact and not saturated. Incisions clean, dry and with minimal drainage and no surrounding erythema, warmth or purulent drainage. Silverlon dressing placed POD1. Pt has full ROM of ankle and all 5 digits. Pt has 5/5 strength with resisted DF/PF. SLR in tact. Calf supple and non tender. NVI with sensation to light touch distally and good distal pulses present. Lower extremity noted to have good color and temperature with no signs of vascular or lymphatic insufficiency. Principal Diagnosis right knee osteoarthritis s/p right total knee arthroplasty Discharge Data Allergies Allergy/AdvReac Type Severity Reaction Status Date / Time ketoconazole Allergy Unknown Rash Verified 08/03/22 08:08 lactose Allergy Unknown LACTOSE Verified 08/03/22 08:08 INTOLERANT latex Allergy Unknown RASH/ITCHIN Verified 08/03/22 08:08 G oxycodone Allergy Unknown HIVES/DIFFICULTY Verified 08/03/22 08:08 BREATHING seasonal AdvReac Unknown congestion Uncoded 08/03/22 08:08 Consultations 07/29/22 13:24 Consult Hospitalist Routine 08/03/22 13:43 Consult Hospitalist Routine Procedures Performed Operation Date: 08/03/22 10:20 Actual Procedures p Right Total Knee Arthroplasty(Right) - Will Rodriguez MD Ordered Studies 08/03/22 05:00 US - OR guided needle placemen Routine Hospital Course (1) Osteoarthritis: POD #1 s/p Right TKA, doing as well as expected. Continue diet. WBAT with walker. OOB to chair. Continue pain control. H/H stable New pressure dressing was applied to her right knee today. We will plan for follow-up on Tuesday to apply Silverlon as an outpatient once drainage has stopped. DVT prophylaxis: TEDs 3 weeks, foot pumps while in hospital, Eliquis 2.5 mg BID for 6 weeks. PT/OT. Appreciate Medicine input. D/C home with home health Total Time Total Time Spent Total Time Spent (In Minutes): 45 minutes Discharge Plan Discharge Items Patient Disposition: Home - Home Health Services Reason For Visit: Right Knee Pain Discharge Diagnosis: Right Knee Osteoarthritis Activity: As commented below Lifting: None Bathing: Keep incision dry Bathing Comment: May shower tomorrow Sexual Activity: Wait until after follow-up appointment Exercise/Sports: Wait until after follow-up appointment Weightbearing: Full weightbearing Weightbearing Comment: as tolerated with walker assistance Non-emergency contact: Surgeon Call non-emergency contact if: you have any medication questions, your pain is not controlled, your temperature is above 101.5, your wound has increased drainage and your wound pain has increased Follow-up/Referrals: Heide Romo MD [Primary Care Provider] - Joyce Lee PA-C [Physician Spring Fitter] - 08/06/22 1:00 pm Diet: Regular and Carb Consistent or DM2 Addtl Attending Provider Instructions: ORTHOPEDIC DISCHARGE INSTRUCTIONS -Weight bearing as tolerated with walker to assist in ambulation -Home health/PT x 2 weeks. You will receive home exercises to do on your own for the first two weeks from home PT. Please do these exercises 3 times a day. -Frequently ice, at least 20 minutes 5 times a day. -Elevate operative leg above your heart with pillows/blankets underneath your ankle, never under your knee. This helps to keep the knee in extension and prevent a flexion contracture. -Keep pressure dressing on your right leg until your follow up on Tuesday08/06/22. Keep the dressing clean and dry. -DVT prophylaxis: Eliquis 2.5mg twice a day for 6 weeks, COLEEN compression stockings for 3 weeks -Pain control: oxycodone 5mg every 4-6 hours as needed, Tylenol 500-1000mg every 8 hours -To promote healing, please take 500mg Vitamin C twice a day with meals x 2 weeks and Iron 325 mg twice a day with meals x 2 weeks -While on narcotic pain medication and iron supplement, we recommend you take a stool softener to prevent constipation -Follow up as scheduled in 2 days and also in 2 weeks with [facility] for post op evaluation and Zip-line removal. Please call our office sooner @ [phone] if you have any questions or concerns Pending Studies at Discharge: No Stand-Alone Forms: My [facility] Medications and DC Order Prescriptions: New Eliquis 2.5 mg Tablet 2.5 mg PO BID 42 Days Qty: 84 0RF ferrous gluconate 324 mg (38 mg iron) Tablet 324 mg PO BIDM 14 Days Qty: 28 0RF Rx Instructions: over the counter; take with Vitamin C acetaminophen [Tylenol Extra Strength] 500 mg Tablet 1,000 mg PO Q8H Qty: 30 0RF Rx Instructions: over the counter; as needed for pain tramadol 50 mg Tablet 50 - 100 mg PO Q4H PRN (Reason: pain) Qty: 18 0RF Rx Instructions: 50 mg for pain 1-5 100mg for pain 6-10 docusate sodium 100 mg Capsule 100 mg PO BID 14 Days Qty: 28 0RF Rx Instructions: over the counter; take while on pain medication ascorbic acid (vitamin C) [Vitamin C] 500 mg Tablet 500 mg PO BIDM 14 Days Qty: 28 0RF Rx Instructions: over the counter; take with iron Continued losartan 100 mg tablet 100 mg PO HS amlodipine 5 mg tablet 5 mg PO QPM Rx Instructions: w/lunch (DME) pen needle, diabetic [BD Ultra-Fine Gela Pen Needle] 32 gauge x 5/32" needle See Rx Instructions .ROUTE .MEDSUPPLY Qty: 100 3RF Rx Instructions: Use to inject insulin once a day (DME) OneTouch Verio test strips Strip See Rx Instructions miscellaneous .MEDSUPPLY Qty: 100 3RF Rx Instructions: Check blood sugars 1x a day (DME) FreeStyle Jd 2 Sensor Kit See Rx Instructions .ROUTE .MEDSUPPLY Qty: 2 11RF Rx Instructions: Change every 14 days metformin 1,000 mg tablet 1,000 mg PO BID Qty: 180 3RF omeprazole 20 mg capsule,delayed release(DR/EC) 20 mg PO QAM (DME) OneTouch Ultra Blue Test Strip Strip See Rx Instructions .ROUTE .MEDSUPPLY Qty: 10 Rx Instructions: Test blood sugar once daily PRN lovastatin 20 mg tablet 20 mg PO HS (DME) lancets [OneTouch Delica Lancets] 33 gauge misc See Rx Instructions .ROUTE .MEDSUPPLY Rx Instructions: Test blood sugar once daily PRN loratadine [Claritin] 10 mg tablet 10 mg PO QAM levothyroxine 200 mcg tablet 200 mcg PO QAM cholecalciferol (vitamin D3) 50 mcg (2,000 unit) capsule 50 mcg PO DAILY (DME) FreeStyle Jd 3 Sensor Device See Rx Instructions .Route Qty: 2 3RF Rx Instructions: As directed Jardiance 25 mg tablet 25 mg PO DAILY Qty: 90 3RF Rx Instructions: Take one tablet by mouth once daily. insulin degludec [Tresiba FlexTouch U-200] 200 unit/mL (3 mL) insulin pen 44 unit subcut QAM Rx Instructions: 1/2 dose today dulaglutide 3 mg/0.5 mL pen injector 3 mg subcut Q7D Rx Instructions: Inject on the same day each week. ciclopirox 8 % solution See Rx Instructions .ROUTE .COMPLEX Rx Instructions: Apply topically daily fluticasone propionate 50 mcg/actuation [place],Suspension 2 spray INTRANASAL DAILY Rx Instructions: administer into each nostril Discontinued naproxen sodium 220 mg capsule 220 mg PO BID PRN (Reason: Pain) turmeric 500 MG 1,500 mg PO DAILY Rx Instructions: Take 1500mg daily with lunch Discharge Orders: Discharge Order (Routine); Ordered 08/04/22 Ordered By: Joyce Lee Admission Data Admit Date/Time: 08/03/22 13:43 Attending Provider: Will Rodriguez Admit Provider: Will Rodriguez Primary Care Provider: Heide Romo Other Providers: Juan Mcneil Thomas E. ; [facility] Healthcare Other Interventions: Discharge Summary Assessment (RN) Last Done: 08/04/22 14:15
== END 2022-08-04 15:28 | disposition home health service (06) ==
LOC: ASU 07:48 → PACUINP 07:48 → 3N 16:14

== ENCOUNTER 2023-02-01 06:42 | Observation (INO) ==
--- NOTE | 2023-01-25 13:08 | Anesthesiology Consultation ---
Date of Service January 25, 2023 Assessment & Plan (1) Encounter for pre-operative examination: Chart Review Chart Review: Acceptable Risk for Surgery and Patient NOT seen in Pre Admission Testing - Check BSG AM DOS Pt currently scheduled as 23 hours observation. If surgeon decides to change patient to Same Day Joint, patient would be acceptable risk for TKA, pending patient is motivated, has good support and surgeon's office completes [facility] Program preop requirements. -COVID screening: Per PAT nursing assessment on 01/25/23. No known COVID-19 positive contacts or current COVID-19 related symptoms. Travel screen negative. Patient vaccinated for Covid. At surgeon discretion if preop Covid testing being done. Per PCP clearance 01/13/2023 = patient seen for preop evaluation. Patient has been medically optimized for upcoming left TKA that is scheduled to be performed 02/01/2023. Preoperative labs completed earlier this week were reviewed today and showed mild normocytic anemia, but otherwise normal. [place] revised cardiac risk index is estimated to be 0.4-0.5% of cardiac complications. Right TKA 08/03/22= Done under SAB at L4-L5 with 1 attempt History Surgery Operation Date: 02/01/23 08:50 Proposed Procedures p Left Total Knee Arthroplasty - Will Barry Rodriguez MD Height/Weight Height: 5 ft 6 in Weight: 131.542 kg Allergies Allergy/AdvReac Type Severity Reaction Status Date / Time ketoconazole Allergy Unknown Rash Verified 01/25/23 12:43 lactose Allergy Unknown LACTOSE Verified 01/25/23 12:43 INTOLERANT latex Allergy Unknown RASH/ITCHIN Verified 01/25/23 12:43 G oxycodone Allergy Unknown HIVES/DIFFICULTY Verified 01/25/23 12:43 BREATHING seasonal AdvReac Unknown congestion Uncoded 01/25/23 12:43 Medications Home Medications Medication Instructions Recorded Confirmed Last Taken amlodipine 5 mg tablet 5 mg PO QDL 04/05/19 01/25/23 10/13/22 losartan 100 mg tablet 100 mg PO QPM 04/05/19 01/25/23 10/13/22 omeprazole 20 mg capsule,delayed 20 mg PO QAM 09/01/20 01/25/23 10/13/22 12:00 release levothyroxine 200 mcg tablet 200 mcg PO QAM 02/03/21 01/25/23 10/14/22 04:45 lancets 33 gauge (OneTouch Delica 10/13/21 01/17/23 Unknown Lancets) loratadine 10 mg tablet (Claritin) 10 mg PO QAM 10/13/21 01/25/23 10/13/22 lovastatin 20 mg tablet 20 mg PO QPM 10/13/21 01/25/23 10/13/22 blood sugar diagnostic (OneTouch #100 ea 04/16/22 01/17/23 Unknown Verio test strips) insulin degludec 200 unit/mL (3 44 unit subcut QAM 07/14/22 01/25/23 10/13/22 mL) subcutaneous pen (Tresiba FlexTouch U-200 insulin) ciclopirox 8 % topical solution See Rx Instructions .Route .COMPLEX 07/15/22 01/25/23 1 Week Ago ~10/07/22 fluticasone propionate 50 2 spray intranasal QAM 07/15/22 01/25/23 10/13/22 mcg/actuation nasal spray,suspension cholecalciferol (vitamin D3) 50 50 mcg PO QPM 07/27/22 01/25/23 10/13/22 mcg (2,000 unit) capsule acetaminophen 500 mg tablet 1,000 mg PO Q8H #30 tabs 08/04/22 01/25/23 10/13/22 (Tylenol Extra Strength) BD Ultra-Fine Gela Pen Needle 32 #100 ea 08/20/22 01/17/23 Unknown gauge x 5/32" (pen needle, diabetic) dulaglutide 3 mg/0.5 mL 3 mg (0.5 mL) subcut ONCE #6 mL 10/29/22 01/25/23 Unknown subcutaneous pen injector (Trulicity) FreeStyle Jd 3 Sensor #2 ea 01/17/23 01/17/23 Unknown (blood-glucose sensor) gabapentin 100 mg tablet 300 mg PO HS 01/17/23 01/25/23 Unknown metformin 1,000 mg tablet 1,000 mg PO BID #180 tabs 01/17/23 01/25/23 Unknown turmeric 400 mg capsule 400 mg PO QAM 01/17/23 01/25/23 Unknown empagliflozin 25 mg tablet 25 mg PO QAM 01/25/23 01/25/23 Unknown (Jardiance) spironolactone 25 mg tablet 25 mg PO QAM 01/25/23 01/25/23 Unknown Past Medical History Medical History (Updated 01/25/23 @ 13:14 by Shani Shearer PA-C) Controlled type 2 diabetes mellitus Hgb A1C 6.4 on 01/10/23 GERD (gastroesophageal reflux disease) Well controlled with Omeprazole History of COVID-19 02/2022, while on a cruise-tested, not hosp; mild w/fatigue-given paxlovid to tx>resolved. Hx of multiple pulmonary nodules Under observation Stable per patient Hx of renal calculi Resolved without intervention Hx of seasonal allergies Hx of thyroid cancer 1999. S/p radioactive iodine. S/p thyroidectomy 2000 2003- additional dosage of radioactive iodine Hyperlipidemia Hyperparathyroidism Calcium borderline Follows with endocrinology. Currently under observation Hypertension Hypothyroidism Surgically induced Morbid obesity Past Family History Family History Father Family history of diabetes mellitus Family hx of hypertension Grandmother Family history of diabetes mellitus Uterus cancer Brother Family history of diabetes mellitus Mother Family hx of hypertension Past Surgical History Surgical History History of esophagogastroduodenoscopy (EGD) History of surgery Exploratory parathyroid surgery in 2019 (additional parathyroid gland not removed) History of total right knee replacement Dr Rodriguez 07/2022 Hx of arthroscopic knee surgery bilat. Hx of colonoscopy Hx of parathyroidectomy 2000 S/P cholecystectomy "also had endometriosis taken care of at the same time" S/P hysterectomy 2012 S/P thyroid surgery 2000 Total Thyroidectomy Secondary thyroid CA. Social History Smoking Status: Never smoker Do You Dip or Chew Tobacco: No Hx Alcohol Use: Yes Alcohol type: beer and hard liquor alcohol intake frequency: holidays/special occasions only Hx Substance Use: No substance use type: does not use Lab Results Anesthesia Preop Results Results Anesthesia Widget: WBC 8.48 K/ul (4.8-10.8) 01/10/23 Hgb 11.1 g/dl (12.0-16.0) L 01/10/23 Hct 37.2 % (37.0-47.0) 01/10/23 Plt 439 K/uL (130-400) H 01/10/23 Na 139 mmol/L (136-145) 01/10/23 K 4.1 mmol/L (3.5-5.1) 01/10/23 Cl 105 mmol/L (98-107) 01/10/23 CO2 25 mmol/L (21-32) 01/10/23 BUN 22 mg/dl (6-23) 01/10/23 Creat 0.64 mg/dl (0.6-1.2) 01/10/23 Glucose Level 147 mg/dl (70-99(Fasting)) H 01/10/23 PT 10.4 Seconds (9.0-12.0) 01/10/23 PTT 26.1 Seconds (21.0-31.0) 01/10/23 INR 0.9 (0.9-1.1) 01/10/23 TSH 0.168 uIu/ml (0.300-4.500) L 01/10/23 Free T4 1.40 ng/dl (0.61-1.60) 01/10/23 HA1c 6.4 % (4.5-5.6) H 01/10/23 Urine Color Yellow 01/10/23 Urine Appearance Clear (Clear) 01/10/23 Urine pH 5.0 (4.5-7.5) 01/10/23 Urine Specific [place] 1.039 (1.000-1.030) H 01/10/23 Urine Protein Negative (Negative) 01/10/23 Urine Glucose (UA) 3+ (Negative) H 01/10/23 Urine Ketones Negative (Negative) 01/10/23 Urine Blood Negative (Negative) 01/10/23 Urine Nitrite Negative (Negative) 01/10/23 Urine Bilirubin Negative (Negative) 01/10/23 Urine Urobilinogen Negative (Negative) 01/10/23 Urine Leukocyte Esterase Negative (Negative) 01/10/23 Testing Laboratory Results Anemia- improved from previous labs 07/2022- PCP aware per 01/13/23 clearance Electrocardiogram Date: 01/10/23 SR with PACs with aberrant conduction Left axis deviation RSR' or QR pattern in V1 suggests RVCD Inferior infarct, age undetermined (Discussed with Dr. Perez- poor quality EKG- patient can proceed as scheduled (negative stress test 01/2022)- will leave to anesthesiologist discretion DOS if repeat EKG needed) Stress Test Date: 02/05/22 Type: exercise Resting EF: 65% Negative exercise stress echocardiogram for ischemia at 95% MPHR. Negative stress EKG for ischemia at 95% MPHR. Well below average exercise tolerance for age and gender, achieved 4.6 months. Other Testing Holter monitor 12/09/2021 = Basic rhythm was NSR. Rare isolated premature ventricular contractions. Very rare premature atrial complexes with a single 4 beat run of PAT. No pauses greater than 3 seconds or evidence of AV block. CT scan of thorax 02/19/2022 = Central airways are patent. No focal consolidation or pulmonary edema. No significant change in numerous pulmonary nodules measuring up to 1.9 cm, many of which have significantly increased from 07/08/2017. No pleural effusion or pleural nodularity.
[~2023-02-01 06:42] MED LIST changes: -BUPIVACAINE 0.25% 30 ML VIAL ONE; +GABAPENTIN 600 MG DOSE PO SCH; +ROPIVACAINE 0.5% 5 MG/ML 30 ML VIAL ONE
[2023-02-01] MEDS ORDERED: MIDAZOLAM HCL 1 MG/ML 2ML VIAL ONE (07:55)
[2023-02-01] MEDS ORDERED: PROPOFOL IV EMULSION 10 MG/ML 20 ML VIAL IV ONE ×2 (07:57→10:43)
--- NOTE | 2023-02-01 08:23 | History & Physical Bridge Note ---
Date of Service February 01, 2023 History & Physical Bridge Note I have examined the patient, reviewed the History & Physical and in the interval since the performance of the History & Physical I have noted the following changes of clinical significance: no changes noted Patient is aware of the risks and is asymptomatic for COVID-19.
[2023-02-01] MEDS ORDERED: ORTHO JOINT ANESTHETIC ONE (08:54)
--- NOTE | 2023-02-01 09:09 | Anesthesiology Consultation ---
Date of Service February 01, 2023 Assessment & Plan Chart Review Chart Review: Acceptable Risk for Surgery Consults Requested none History Surgery Operation Date: 02/01/23 09:10 Proposed Procedures p Left Total Knee Arthroplasty - Will Barry Rodriguez MD Height/Weight Height: 5 ft 6 in Weight: 130.5 kg Allergies Allergy/AdvReac Type Severity Reaction Status Date / Time lactose Allergy Intermediate LACTOSE Verified 02/01/23 07:11 INTOLERANT oxycodone Allergy Intermediate HIVES/DIFFICULTY Verified 02/01/23 07:11 BREATHING ketoconazole Allergy Mild Rash Verified 02/01/23 07:11 latex Allergy Mild RASH/ITCHIN Verified 02/01/23 07:11 G seasonal AdvReac Mild congestion Uncoded 02/01/23 07:11 Medications Home Medications Medication Instructions Recorded Confirmed Last Taken amlodipine 5 mg tablet 5 mg PO QDL 04/05/19 02/01/23 02/01/23 06:15 losartan 100 mg tablet 100 mg PO QPM 04/05/19 02/01/23 01/31/23 18:30 omeprazole 20 mg capsule,delayed 20 mg PO QAM 09/01/20 02/01/23 02/01/23 06:15 release levothyroxine 200 mcg tablet 200 mcg PO QAM 02/03/21 02/01/23 02/01/23 03:30 lancets 33 gauge (OneTouch Delica 10/13/21 01/17/23 Unknown Lancets) loratadine 10 mg tablet (Claritin) 10 mg PO QAM 10/13/21 02/01/23 01/31/23 07:30 lovastatin 20 mg tablet 20 mg PO QPM 10/13/21 02/01/23 01/31/23 18:30 blood sugar diagnostic (Casual CollectiveTouch #100 ea 04/16/22 01/17/23 Unknown Verio test strips) insulin degludec 200 unit/mL (3 44 unit subcut QA 07/14/22 02/01/23 01/31/23 07:30 mL) subcutaneous pen (Tresiba FlexTouch U-200 insulin) ciclopirox 8 % topical solution See Rx Instructions .Route .COMPLEX 07/15/22 02/01/23 1 Week Ago ~10/07/22 fluticasone propionate 50 2 spray intranasal QAM 07/15/22 02/01/23 01/31/23 07:00 mcg/actuation nasal spray,suspension cholecalciferol (vitamin D3) 50 50 mcg PO QPM 07/27/22 02/01/23 01/31/23 18:30 mcg (2,000 unit) capsule acetaminophen 500 mg tablet 1,000 mg PO Q8H #30 tabs 08/04/22 02/01/23 01/31/23 18:30 (Tylenol Extra Strength) BD Ultra-Fine Gela Pen Needle 32 #100 ea 08/20/22 01/17/23 Unknown gauge x 5/32" (pen needle, diabetic) dulaglutide 3 mg/0.5 mL 3 mg (0.5 mL) subcut ONCE #6 mL 10/29/22 02/01/23 01/20/23 21:00 subcutaneous pen injector (Trulicity) FreeStyle Jd 3 Sensor #2 ea 01/17/23 01/17/23 Unknown (blood-glucose sensor) gabapentin 100 mg tablet 300 mg PO HS 01/17/23 02/01/23 01/31/23 19:00 metformin 1,000 mg tablet 1,000 mg PO BID #180 tabs 01/17/23 02/01/23 01/31/23 18:30 turmeric 400 mg capsule 400 mg PO QA 01/17/23 02/01/23 01/31/23 07:30 empagliflozin 25 mg tablet 25 mg PO QAM 01/25/23 02/01/23 01/30/23 07:30 (Jardiance) spironolactone 25 mg tablet 25 mg PO QA 01/25/23 02/01/23 01/31/23 12:00 Active Medications Generic Name Dose Route Start Last Admin Trade Name Freq PRN Reason Stop Dose Admin Acetaminophen 1,000 mg 02/01/23 06:00 02/01/23 07:46 Acetaminophen 500 Mg Tab PO 02/01/23 18:00 1,000 mg PREOP TORI Administration Celecoxib 200 mg 02/01/23 06:00 02/01/23 07:45 Celebrex 200 Mg Cap PO 02/01/23 18:00 200 mg PREOP TORI Administration Gabapentin 600 mg 02/01/23 06:00 02/01/23 07:46 Gabapentin 600 Mg Dose PO 02/01/23 18:00 600 mg PREOP TORI Administration Tranexamic Acid 1,000 mg in 100 mls @ 600 mls/hr 02/01/23 06:00 02/01/23 08:48 Tranexamic Acid / 0.7% Nacl IV 02/01/23 18:00 600 mls/hr TODAY@0600 TORI Administration Lactated Ringer's 1,000 mls @ 15 mls/hr 02/01/23 06:00 02/01/23 07:25 Lr IV 02/01/23 18:00 15 mls/hr .Q24H TORI Administration Lactated Ringer's 1,000 mls @ 60 mls/hr 02/01/23 06:00 02/01/23 07:44 Lr IV 02/01/23 22:39 Not Given .[id number] TORI Scopolamine 1 mg 02/01/23 06:00 02/01/23 07:46 Scopolamine 1 Mg Tdsy TD 02/01/23 18:00 1 mg PREOP TORI Administration NPO Date Last Intake of Fluids: 01/31/23 Time Last Intake of Fluids: 21:30 Last Intake of Fluids Comment: sip of water this am with med Date Last Intake of Solids: 01/31/23 Time Last Intake of Solids: 19:30 Past Medical History Medical History Controlled type 2 diabetes mellitus Hgb A1C 6.4 on 01/10/23 GERD (gastroesophageal reflux disease) Well controlled with Omeprazole History of COVID-19 02/2022, while on a cruise-tested, not hosp; mild w/fatigue-given paxlovid to tx>resolved. Hx of multiple pulmonary nodules Under observation Stable per patient Hx of renal calculi Resolved without intervention Hx of seasonal allergies Hx of thyroid cancer 1999. S/p radioactive iodine. S/p thyroidectomy 2000 2003- additional dosage of radioactive iodine Hyperlipidemia Hyperparathyroidism Calcium borderline Follows with endocrinology. Currently under observation Hypertension Hypothyroidism Surgically induced Morbid obesity Past Family History Family History Father Family history of diabetes mellitus Family hx of hypertension Grandmother Family history of diabetes mellitus Uterus cancer Brother Family history of diabetes mellitus Mother Family hx of hypertension Past Surgical History Surgical History History of esophagogastroduodenoscopy (EGD) History of surgery Exploratory parathyroid surgery in 2019 (additional parathyroid gland not removed) History of total right knee replacement Dr Rodriguez 07/2022 Hx of arthroscopic knee surgery bilat. Hx of colonoscopy Hx of parathyroidectomy 2000 S/P cholecystectomy "also had endometriosis taken care of at the same time" S/P hysterectomy 2012 S/P thyroid surgery 2000 Total Thyroidectomy Secondary thyroid CA. Social History Smoking Status: Never smoker Do You Dip or Chew Tobacco: No Hx Alcohol Use: Yes Alcohol type: beer and hard liquor alcohol intake frequency: holidays/special occasions only Hx Substance Use: No substance use type: does not use Physical Exam Vital Signs Last Vital Signs Temp 36.9 C 02/01/23 07:32 Pulse 77 02/01/23 07:32 Resp 20 02/01/23 07:32 Pulse Ox 96 02/01/23 07:32 O2 Del Method Room Air 02/01/23 07:32 Testing Laboratory Results 02/01/23 07:12 POC Glucose 133 H
[2023-02-01] MEDS ORDERED: ePHEDrine sulfate 50 MG/ML AMP IV PRN (09:10)
[2023-02-01] MEDS ORDERED: PROMETHAZINE HCL 12.5 MG in SODIUM CHLORIDE 0.9% 50 ML IV PRN (09:10)
[2023-02-01] MEDS ORDERED: ONDANSETRON INJ 2 MG/ML 2 ML VIAL IV PRN ×2 (09:10→13:30)
[2023-02-01] MEDS ORDERED: ATROPINE SULFATE 0.1 MG/ML 10ML SYR IV PRN (09:10)
[2023-02-01] MEDS ORDERED: HYDROmorphone INJ 2 MG/ML SYR/VIAL IV PRN (09:10)
[2023-02-01] MEDS ORDERED: ePHEDrine sulfate 50 MG/ML AMP ONE (09:42)
[2023-02-01] MEDS ORDERED: KETAMINE 50 MG/5 ML SYRINGE ONE (10:35)
--- NOTE | 2023-02-01 11:59 | Post Operative Brief Note ---
Immediate Post Op Note v1 Date of Surgery February 01, 2023 Pre & Post Diagnosis Operation Date: 02/01/23 09:10 Pre-Op Diagnosis: Left Knee Osteoarthritis Post-Op Diagnosis: Left Knee Osteoarthritis I identified the patient and participated in the time-out.: Yes Procedure Operation Date: 02/01/23 09:10 Actual Procedures p Left Total Knee Arthroplasty, Cemented.(Left) - Will Rodriguez MD Surgeon Will Rodriguez MD Admitting Representative Mary Lee PA-C (No fellow avail) Estimated Blood Loss 100 Findings Consistent with Post-Op Diagnosis Fluids 1100 cc Specimens Left knee contents Drains Hemovac Drain (Prevena) Anesthesia Type MAC Spinal Regional Complications none
--- NOTE | 2023-02-01 11:59 | Operative Report ---
Post Operative Report Pre & Post Diagnosis Operation Date: 02/01/23 09:10 Pre-Op Diagnosis: Left Knee Osteoarthritis Post-Op Diagnosis: Left Knee Osteoarthritis I identified the patient and participated in the time-out.: Yes Procedure Operation Date: 02/01/23 09:10 Actual Procedures p Left Total knee replacement, imageless computer assisted navigation, Cemented.(Left) - Will Rodriguez MD Surgeon Will Rodriguez MD College Basketball Coach Mary Lee PA-C (No fellow avail) Estimated Blood Loss 100 Findings See Below Examined Under Anesthesia: ROM -- There was 5 degrees to 105 degrees of flexion Ligamentous examination -- revealed stable Patricia, posterior drawer, varus and valgus stress at 5 and 30 degrees. Outerbridge Grade IV changes of Tri-compartments, with large osteophytes. Fluids 1100 cc Specimens left knee contents Drains Prevena Anesthesia Type MAC Spinal Regional Complications none Indications This is a 62-year-old female who has clinical and radiographic findings consistent with severe osteoarthritis of the a left knee, that has failed conservative treatment. I recommended that a left total knee replacement be performed. The patient understands the risks of surgery, which include but not limited to: bleeding, infection, re-operation, damage to nerves and arteries, continued knee pain, knee stiffness, DVT, and . The patient understands all of these instructions and explanations, all of his questions have been satisfactorily addressed and the patient has elected to proceed. Informed consent was signed. Description of Procedure IMPLANTS: 1. Femur: Triathlon #5 Left PS. 2. Tibia: Triathlon #5 [place] with 12 x 50 mm stem. 3. Insert: Triathlon #5 x 9 mm PS X3 poly. 4. Patella: Triathlon A35 x 10 mm X3 poly. 5. Palacos cement. Mary Lee PA-C is assisting with positioning, retracting, and closure due to fellow not available. Procedure: The patient was taken to the Operating Room and placed in the supine position after spinal and adductor canal nerve block was administered. My initials and a multidisciplinary time-out were used to identify the left leg as the correct operative limb. A tourniquet was placed high in the thigh. Prior to the incision, 3 grams of intravenous Ancef were given. The left leg was then prepped and draped in a standard sterile fashion. An Esmarch was used to exsanguinate the leg and the tourniquet was inflated to 250 mmHg. The planned mid-line 25 cm incision was created exposing the extensor mechanism. The medial parapatellar arthrotomy was made and the patella was everted. The patella was addressed first. It was prepared by reaming from 23 mm down to 13 mm. An A35 button was found to fit best. The peg holes were made in the standard fashion. The femur was addressed next and using computer assisted OrthoAlign with 3 degrees of flexion and 0 degrees of valgus, removing 10 mm in the standard fashion for the distal cut. The tibial cut was necessary before being able to complete the femoral cuts. The cut was made and the 4-in-1 cutting block for a size 5 femur was placed. These cuts and the cuts to place the box were made in the standard fashion. When our attention was drawn to the tibia cut with using imageless computer assisted OrthoAlign, taking 2 mm from the medial low side. There was sufficient extension and flexion gap to fit a 9 mm spacer. A #5 Tibial baseplate fit well. A trial with a 9 mm spacer showed excellent stability in both flexion and extension, with good ligament balance, and thumbs free patellar tracking. Range of motion of 0-110 degrees. The tibial baseplate was prepped for the keel and stem. A stem was used due to some areas of soft bone, to avoid subsidence. All components were removed. All surfaces were copiously irrigated prior to placement of the components. The femoral component followed by Tibial baseplate were cemented in place and the 9 mm X3 poly was placed. Next, the patellar button was placed using another batch of cement. Once the cement had cured, the range of motion and stability were unchanged.Again, the range of motion and stability were unchanged. The tourniquet was deflated. Hemostasis was obtained. 90 ml of total knee cocktail were injected into the soft tissues and periosteum. The extensor mechanism was closed with 1-0 Vicryl and 0 Stratafix with the knee bent approximately 60 degrees in a standard fashion. The peritenon and deep fascia was closed with 2-0 Vicryl. The subcutaneous layer was closed with 3-0 Vicryl. The skin was closed with Zipline and shield. The limb was cleaned and dried.A Prevena (Incisional wound vac), sterile Webril, and a foot to thigh Aniket bandage. The patient was then transferred to the Recovery Room in stable condition. The sponge and needle counts were correct. POST-OP INSTRUCTIONS: The patient will be WBAT. The patient will be admitted to the hospital. Labs will be obtained during the stay. DVT prophylaxis will included aspirin for 6 weeks, TEDs, and mechanical foot pumps. The Prevena will be removed and replaced with Silverlon in the office in 1 week. I attest to the content of the Intraoperative Record and any orders documented therein. Any exceptions are noted below.
[2023-02-01] MEDS: fentaNYL citrate PF 100 MCG/2 ML VIAL IV PRN ×2 (12:20→12:40)
[2023-02-01] MEDS ORDERED: traMADol HCL 50 MG TABLET PO SCH (12:30)
--- NOTE | 2023-02-01 12:30 | Operative Report ---
Post Operative Report Pre & Post Diagnosis Operation Date: 02/01/23 09:10 Pre-Op Diagnosis: Left Knee Osteoarthritis Post-Op Diagnosis: Left Knee Osteoarthritis I identified the patient and participated in the time-out.: Yes Procedure Operation Date: 02/01/23 09:10 Actual Procedures p Left Total Knee Arthroplasty, Cemented.(Left) - Will Rodriguez MD Surgeon Dr Will Rodriguez Linen Tech Mary Lee PA-C (No fellow avail) Estimated Blood Loss 100 Findings Consistent with Post-Op Diagnosis Specimens none Description of Procedure Pt was taken to operating room, placed under spinal with sedation. Pt was given 3g Ancef IV. Prepped and draped in sterile fashion. I was present during the entire case and assisted with positioning, instrumentation, closure and dressings. Please see Dr. Rodriguez's op report for further detail. Pt was awake and transferred to PACU in stable condition I attest to the content of the Intraoperative Record and any orders documented therein. Any exceptions are noted below.
--- NOTE | 2023-02-01 13:06 | Anesthesiology Progress Note ---
Date of Service February 01, 2023 Anesthesia Post Procedure Vital Signs Vital Signs: Temp Pulse Pulse Resp BP Pulse Ox O2 Del Method 02/01/23 12:50 72 15 123/65 93 Nasal Cannula 02/01/23 12:40 36.6 C 73 17 127/70 94 Nasal Cannula 02/01/23 12:30 73 20 121/63 95 Nasal Cannula 02/01/23 12:20 77 18 129/62 96 Nasal Cannula 02/01/23 12:10 82 20 134/72 94 Nasal Cannula 02/01/23 12:06 36.5 C 80 16 138/71 94 Nasal Cannula 02/01/23 07:32 36.9 C 77 20 96 Room Air O2 Flow Rate 02/01/23 12:50 2 02/01/23 12:40 2 02/01/23 12:30 2 02/01/23 12:20 2 02/01/23 12:10 2 02/01/23 12:06 2 02/01/23 07:32 Pain Intensity Left Knee: Pain Intensity: 5 Transfer of Care Handoff Completed per policy Notes Mental Status: alert / awake / arousable and participated in evaluation Nausea / Vomiting: adequately controlled Pain: adequately controlled Airway Patency, RR, SpO2: stable & adequate BP & HR: stable & adequate Hydration State: stable & adequate Neuraxial Anesthesia: was administered and sensory block is resolving Anesthetic Complications: no major complications apparent and Pt Satisfied with anesthetic care
--- NOTE | 2023-02-01 13:29 | XRay Report ---
TWO VIEWS LEFT KNEE CLINICAL HISTORY: Postoperative examination. FINDINGS: AP and crosstable lateral portable views of the left knee are obtained. A left knee arthrop lasty is in near anatomic alignment. There has been undersurface remodeling of the patella. No acute fracture is seen. There are expected postoperative changes around the knee including soft tissue bashir a and subcutaneous gas. IMPRESSION: Expected postoperative changes status post left knee arthroplasty. No acute fracture is s een. ACT 112: Negative or not required by law. Electronically signed by: Sal Wu M.D. 02/01/2023 1:27 PM
[2023-02-01] MEDS ORDERED: bisacodyL 10 MG SUPP PR PRN (13:30)
[2023-02-01] MEDS ORDERED: NALOXONE HCL 0.4 MG/1 ML VIAL/CARP IV PRN (13:30)
[2023-02-01] MEDS ORDERED: MAGNESIUM HYDROXIDE SUSP 30 ML UDC PO PRN (13:30)
[2023-02-01] MEDS ORDERED: METOCLOPRAMIDE HCL INJ 5 MG/ML 2 ML VIAL IV PRN (13:30)
--- NOTE | 2023-02-01 13:46 | Hospitalist Consultation ---
Date of Consultation February 01, 2023 Assessment & Plan (1) Osteoarthritis of left knee: s/p Left Total Knee Arthroplasty, Cemented.(Left) - Will Rodriguez MD. EBL 100cc Pain control/bowel regimen/PT/OT per primary service DVT proph ordered with low dose eliquis 2.5mg BID to start tomorrow. SCDs in meantime Patient reports she was hopeful for aspirin for DVT proph given issues w/ PO narcotics Messaged ortho to see about such, no hx DVT Of note, patient just had her RIGHT knee done in July with Dr Rodriguez Monitor labs on repeat (2) Diabetes mellitus: a1c 6.4, follows locally w/ endocrinology On metformin 1g BID, tresiba 44u QAM, jardiacne 25mg, trulicity 3mg Reporting good weight loss since being on the jardiacne -- recently was to be mounjaro but no coverage. prior endo note rec increase truclitity if ozempic not covered (she has not yet called about the ozempic -- if not covered, endo rec'ing increase truclicity to 4.5mg) Holding home meds, BSG AC/HS, SSI and glargine 20u BID (not taken her dose this morning) Monitor BSG/consult pharm if needed (3) Hypertension: on amlodipine 5mg, losartan 100mg PM, spironolactone 25mg QAM Will hold losartan/spironolactone and monitor BP/kidney function in am can continue amlodipine for now Monitor BP -- currently 113/74 (4) Hyperparathyroidism: chronic, following specialist in [place]/locally w/ endo for DM II as above will check Vit d w/ am labs given continued elevated calcium levels (on vit d 50mcg daily) (5) Hyperlipidemia: continue lovastatin 20mg daily (6) Hypothyroidism: surgically induced. tsh recently 0.168 however review of chart endo patient prefers following with specalist in [place]. to consider f/u locally if she is agreeable remains on Synthroid 200mcg daily in the meantime, consider reducing dose to 188mcg daily and repeating TFT outpatient? -> she wants to follow up with her provider in [place] (7) S/P thyroid surgery: 2000 Total Thyroidectomy Secondary thyroid CA. (8) Murmur: +murmur on exam, suspected systolic she notes her PCP had heard murmur and she reports having ECHO through PCP office Discussed likely aortic stenosis and volume status important to prevent lightheaded/dizziness as prior reports (none at present) (9) Anemia: Hgb pre-op testing 11.1, MCV borderline 80.9 Does have some generalized pallor on exam, and denied any bleeding issues w/ eliquis use w/ prior knee replacement check iron panel w/ am labs for completeness If has never had cscope for screening, should have in follow up at d/c w/ PCP Supervising Physician Co-Signing Physician Notes I personally saw and examined the patient. I verified all pendleton points and agree with Ila Camara PA-C with the following exceptions and/or additions: 62 year old female POD#0 left TKA. EBL 100ml. No concerns from patient. O/E A&Ox3, HS RRR, systolic murmur, Chest CTAB, Abdo SNT, NV intact distal to operation site (cap refill and 1st MTPJ plantar/dorsiflexion) A/P VTE/Pain/bowel regimen by primary orthopedic team Spironolactone/losartan on hold pending blood pressure measurements overnight Pharmacy consulted for glycemic control. HbA1C 6.4, no adjustments necessary on discharge. History of Present Illness Reason for Consultation: medical management Requesting Physician: Dr Rodriguez Attending Physician: Will Rodriguez MD History of Present Illness 62yo female with PMHx significant for HTN, HLD, DM II, hyperparathyroidism, hypothyroidism, obesity and recent right total knee arthroplasty with Dr Rodriguez in July 2022 and now presented for LEFT total knee replacement with Dr Rodriguez 02/01. EBL 100cc. Eval in room 311, at bedside. Sitting up in chair, eating lunch. No acute distress. Pain controlled. No fever/chills, chest pain, shortness of breath, abdominal pain, nausea or vomiting. She notes she did not take her insulin yet this morning -- discussed scheduling 20u BID as she typically takes 44u QAM and will cover w/ SSI. She notes she had 30-40lb weight loss since starting jardiance w/ endo and was going to be on mounjaro but was doing "too well" to get this covered. She has not yet had a chance to call about the Ozempic with everything going on and surgery but she will after dc. If not covered, endo rec increasing Trulicity to 4.5mg. She notes she follows in [place] for her thyroid and they like to keep her TSH on the low side Rec f/u and repeating labs in follow up as she does not want any adjustments at present. DVT proph w/ Eliquis -- she notes this is what they used last time and she was hoping they would use aspirin as she has a hard time tolerating PO Percocet and unable to take NSAIDs on Eliquis. She did tolerate the Eliquis w/o bleeding reported. Will message orthopedics regarding her wishes as Eliquis to begin in AM. On exam, murmur -- she notes Dr Bird has noted this and she has had an echo through their office without significant aortic stenosis and they are monitoring her. She does have occasional lightheaded/dizziness (none at present) and discussed holding diuretics until BP/kidney function assessed in AM. Questions/concerns addressed at this time. Hospitalist service will follow along. Allergies Allergy/AdvReac Type Severity Reaction Status Date / Time lactose Allergy Intermediate LACTOSE Verified 02/01/23 07:11 INTOLERANT oxycodone Allergy Intermediate HIVES/DIFFICULTY Verified 02/01/23 07:11 BREATHING ketoconazole Allergy Mild Rash Verified 02/01/23 07:11 latex Allergy Mild RASH/ITCHIN Verified 02/01/23 07:11 G seasonal AdvReac Mild congestion Uncoded 02/01/23 07:11 Home Medications Medication Instructions Recorded Confirmed Type amlodipine 5 mg tablet 5 mg PO QDL 04/05/19 02/01/23 History losartan 100 mg tablet 100 mg PO QPM 04/05/19 02/01/23 History omeprazole 20 mg capsule,delayed 20 mg PO QAM 09/01/20 02/01/23 History release levothyroxine 200 mcg tablet 200 mcg PO QAM 02/03/21 02/01/23 History lancets 33 gauge (OneTouch Delica 10/13/21 01/17/23 History Lancets) loratadine 10 mg tablet (Claritin) 10 mg PO QAM 10/13/21 02/01/23 History lovastatin 20 mg tablet 20 mg PO QPM 10/13/21 02/01/23 History blood sugar diagnostic (OneTouch #100 ea 04/16/22 01/17/23 Rx Verio test strips) insulin degludec 200 unit/mL (3 44 unit subcut QAM 07/14/22 02/01/23 History mL) subcutaneous pen (Tresiba FlexTouch U-200 insulin) ciclopirox 8 % topical solution See Rx Instructions .Route .COMPLEX 07/15/22 02/01/23 History fluticasone propionate 50 2 spray intranasal QAM 07/15/22 02/01/23 History mcg/actuation nasal spray,suspension cholecalciferol (vitamin D3) 50 50 mcg PO QPM 07/27/22 02/01/23 History mcg (2,000 unit) capsule acetaminophen 500 mg tablet 1,000 mg PO Q8H #30 tabs 08/04/22 02/01/23 Rx (Tylenol Extra Strength) BD Ultra-Fine Gela Pen Needle 32 #100 ea 08/20/22 01/17/23 Rx gauge x 5/32" (pen needle, diabetic) dulaglutide 3 mg/0.5 mL 3 mg (0.5 mL) subcut ONCE #6 mL 10/29/22 02/01/23 Rx subcutaneous pen injector (Trulicity) FreeStyle Jd 3 Sensor #2 ea 01/17/23 01/17/23 Rx (blood-glucose sensor) gabapentin 100 mg tablet 300 mg PO HS 01/17/23 02/01/23 History metformin 1,000 mg tablet 1,000 mg PO BID #180 tabs 01/17/23 02/01/23 Rx turmeric 400 mg capsule 400 mg PO QAM 01/17/23 02/01/23 History empagliflozin 25 mg tablet 25 mg PO QAM 01/25/23 02/01/23 History (Jardiance) spironolactone 25 mg tablet 25 mg PO QAM 01/25/23 02/01/23 History Patient History Medical History Controlled type 2 diabetes mellitus Hgb A1C 6.4 on 01/10/23 GERD (gastroesophageal reflux disease) Well controlled with Omeprazole History of COVID-19 02/2022, while on a cruise-tested, not hosp; mild w/fatigue-given paxlovid to tx>resolved. Hx of multiple pulmonary nodules Under observation Stable per patient Hx of renal calculi Resolved without intervention Hx of seasonal allergies Hx of thyroid cancer 1999. S/p radioactive iodine. S/p thyroidectomy 2000 2003- additional dosage of radioactive iodine Hyperlipidemia Hyperparathyroidism Calcium borderline Follows with endocrinology. Currently under observation Hypertension Hypothyroidism Surgically induced Morbid obesity Surgical History History of esophagogastroduodenoscopy (EGD) History of surgery Exploratory parathyroid surgery in 2019 (additional parathyroid gland not removed) History of total right knee replacement Dr Rodriguez 07/2022 Hx of arthroscopic knee surgery bilat. Hx of colonoscopy Hx of parathyroidectomy 2000 S/P cholecystectomy "also had endometriosis taken care of at the same time" S/P hysterectomy 2012 S/P thyroid surgery 2000 Total Thyroidectomy Secondary thyroid CA. Family History Father Family history of diabetes mellitus Family hx of hypertension Grandmother Family history of diabetes mellitus Uterus cancer Brother Family history of diabetes mellitus Mother Family hx of hypertension Social History Smoking Status: Never smoker Second Hand Exposure: Yes (as a child); Do You Dip or Chew Tobacco: No; Hx Alcohol Use: Yes Alcohol type: beer and hard liquor Alcohol type Comment: Rare Hx Substance Use: No Preferred Language: Afghan Communication Ability: Effective Board Lining Machine Operator Required: No Beliefs That Will Affect Care: None marital status: Current Living Situation: Spouse current occupational status: employed How many Children do You have Comment: 1 Feels Safe at Home: Yes Safety Concerns: Feels Safe At This Time Assistive Devices: Walker Review of Systems Review of Systems: All systems reviewed & are unremarkable except as noted in HPI & below Physical Exam Physical Exam: General: WD/WN obese female sitting up in bed, NAD, eating lunch HEENT; head normocephalic, atraumatic, prior scar from thyroidectomy noted, trachea midline Resp: dimished in the bases, no w/c, on 2L NC post op Spo2 96% CV: regular rate/rhtyhm, +murmur, no g/r, b/l LE edema at baseline but calves no ntender, pulses palpable, sensation intact GI: +BS, soft/NT : no daniel MSK/Neuro: no focal deficit, prior R knee replacement noted L knee dressing/arnulfo wrap intact, calves supple/nontender, prevena w/ green light on, sensation intact, toes mobile, pulses palpable Psych: AOx3, cooperative with exam Results & Data Results & Data Vital Signs (Past 12 Hours) Vital Signs Temp Pulse Pulse Resp BP Pulse Ox O2 Del Method 02/01/23 13:00 71 16 125/64 95 Nasal Cannula 02/01/23 12:50 72 15 123/65 93 Nasal Cannula 02/01/23 12:40 36.6 C 73 17 127/70 94 Nasal Cannula 02/01/23 12:30 73 20 121/63 95 Nasal Cannula 02/01/23 12:20 77 18 129/62 96 Nasal Cannula 02/01/23 12:10 82 20 134/72 94 Nasal Cannula 02/01/23 12:06 36.5 C 80 16 138/71 94 Nasal Cannula 02/01/23 07:32 36.9 C 77 20 96 Room Air O2 Flow Rate 02/01/23 13:00 2 02/01/23 12:50 2 02/01/23 12:40 2 02/01/23 12:30 2 02/01/23 12:20 2 02/01/23 12:10 2 02/01/23 12:06 2 02/01/23 07:32 Laboratory Results 02/01/23 02/01/23 02/01/23 Range/Units Unknown 12:08 07:12 POC Glucose 138 H 133 H (70-99) mg/dl SARS-CoV-2, RNA, NAAT NEGATIVE (NEGATIVE) Blood Type Antibody Screen 02/01/23 Range/Units 07:12 POC Glucose (70-99) mg/dl SARS-CoV-2, RNA, NAAT (NEGATIVE) Blood Type A Positive Antibody Screen NEGATIVE Diagnostic Findings Knee X-Ray 02/01/23 12:26 TWO VIEWS LEFT KNEE CLINICAL HISTORY: Postoperative examination. FINDINGS: AP and crosstable lateral portable views of the left knee are obtained. A left knee arthroplasty is in near anatomic alignment. There has been undersurface remodeling of the patella. No acute fracture is seen. There are expected postoperative changes around the knee including soft tissue edema and subcutaneous gas. IMPRESSION: Expected postoperative changes status post left knee arthroplasty. No acute fracture is seen. ACT 112: Negative or not required by law. Electronically signed by: Sal Wu M.D. 02/01/2023 1:27 PM PG Care Time/CCT Total # of Minutes Spent Total Time Spent with Patient: Total time spent is greater than 50% in coordination of care (as documented) at patient's floor/unit and/or counseling patient: Coding Level of Care Code 70726 IN/OBS CONSULT LVL 3,45M Diagnoses Osteoarthritis of left knee M17.12 Diabetes mellitus E11.9 Hypertension I10 Hyperparathyroidism E21.3 Hyperlipidemia E78.5 Hypothyroidism E03.9 S/P thyroid surgery Z98.890 Murmur R01.1 Anemia D64.9
[2023-02-01] MEDS ORDERED: GLUCOSE 40% GEL 15 GM TUBE PO PRN (13:48)
[2023-02-01] MEDS ORDERED: CARBOHYDRATES FOR HYPOGLYCEMIA PO PRN (13:48)
[2023-02-01] MEDS ORDERED: GLUCAGON FOR INJ 1 MG VIAL SQ PRN (13:48)
[2023-02-01] MEDS ORDERED: DEXTROSE 50% 50 ML SYRINGE IV PRN (13:48)
[2023-02-01] MEDS ORDERED: GLUCOSE 10 TAB/TUBE PO PRN (13:48)
[2023-02-01] MEDS: SODIUM CHLORIDE 0.9% 1000ML 1,000 ML IV SCH (14:48)
[2023-02-01] MEDS: ACETAMINOPHEN 500 MG TAB PO SCH ×2 (14:50→21:26)
[2023-02-01] MEDS: HYDROmorphone INJ 0.5 MG/0.5 ML SYR IV PRN (15:15)
[2023-02-01] MEDS ORDERED: PHARMACY GLYCEMIC MGMT CONSULT PRN (15:46)
[2023-02-01] MEDS: Scopolamine CHECK PATCH PLACEMENT SCH (16:05)
--- NOTE | 2023-02-01 16:34 | Orthopedic Progress Note ---
Date of Service February 01, 2023 Assessment & Plan (1) Osteoarthritis of left knee: Plan: POD #0 s/p L TKA, with post-op pain. Resume diet. WBAT with walker. OOB to chair. Continue pain control. Check labs tomorrow. DVT prophylaxis: TEDs 3 weeks, foot pumps while in hospital, Eliquis 2.5 mg BID for 6 weeks. Continue Prevena PT/OT. D/C planning. Present on Admission?: Yes Admission and Anticipated Discharge Date Admission Date: February 01, 2023 Subjective c/o burning pain over the proximal incision. Physical Exam Physical Exam: LLE: BCR < 2 sec. Sensation to light touch intact distally. Wiggling ankle and toes. Calf soft and non-tender. Dressing is clean, dry, intact. Unable to preform straight leg raise. Prevena functioning Results & Data Vital Signs (Past 12 Hours) Vital Signs Temp Pulse Pulse Resp BP Pulse Ox O2 Del Method 02/01/23 16:15 36.6 C 73 18 138/76 95 Nasal Cannula 02/01/23 15:13 74 18 139/84 97 Nasal Cannula 02/01/23 14:51 36.7 C 74 18 127/75 96 Nasal Cannula 02/01/23 13:44 73 18 133/77 96 Nasal Cannula 02/01/23 13:45 36.7 C 79 18 113/74 94 Nasal Cannula 02/01/23 13:15 Nasal Cannula 02/01/23 13:15 36.5 C 72 16 120/74 96 Nasal Cannula 02/01/23 13:00 71 16 125/64 95 Nasal Cannula 02/01/23 12:50 72 15 123/65 93 Nasal Cannula 02/01/23 12:40 36.6 C 73 17 127/70 94 Nasal Cannula 02/01/23 12:30 73 20 121/63 95 Nasal Cannula 02/01/23 12:20 77 18 129/62 96 Nasal Cannula 02/01/23 12:10 82 20 134/72 94 Nasal Cannula 02/01/23 12:06 36.5 C 80 16 138/71 94 Nasal Cannula 02/01/23 07:32 36.9 C 77 20 96 Room Air O2 Flow Rate 02/01/23 16:15 2 02/01/23 15:13 2 02/01/23 14:51 2 02/01/23 13:44 2 02/01/23 13:45 02/01/23 13:15 2 02/01/23 13:15 2 02/01/23 13:00 2 02/01/23 12:50 2 02/01/23 12:40 2 02/01/23 12:30 2 02/01/23 12:20 2 02/01/23 12:10 2 02/01/23 12:06 2 02/01/23 07:32 Laboratory Results Laboratory Results POC Glucose 139 mg/dl (70-99) H 02/01/23 13:50 SARS-CoV-2, RNA, NAAT NEGATIVE (NEGATIVE) 02/01/23 Unknown Blood Type A Positive 02/01/23 07:12 Antibody Screen NEGATIVE 02/01/23 07:12 Impressions Knee X-Ray 02/01/23 12:26 TWO VIEWS LEFT KNEE CLINICAL HISTORY: Postoperative examination. FINDINGS: AP and crosstable lateral portable views of the left knee are obtained. A left knee arthroplasty is in near anatomic alignment. There has been undersurface remodeling of the patella. No acute fracture is seen. There are expected postoperative changes around the knee including soft tissue edema and subcutaneous gas. IMPRESSION: Expected postoperative changes status post left knee arthroplasty. No acute fracture is seen. ACT 112: Negative or not required by law. Electronically signed by: Sal Wu M.D. 02/01/2023 1:27 PM
[2023-02-01] MEDS: FERROUS GLUCONATE 324 MG TAB PO SCH (17:49)
[2023-02-01] MEDS: ASCORBIC ACID 500 MG TAB PO SCH (17:49)
[2023-02-01] MEDS: INSULIN ASPART PER UNIT CHARGE SC SCH ×2 (17:58→21:26)
[2023-02-01] MEDS: ceFAZolin 2000MG 2,000 MG/15 ML SYR IV SCH (18:00)
[2023-02-01] MEDS: traMADol HCL 50 MG TABLET PO PRN (19:39)
[2023-02-01] MEDS: SENNA 8.6 MG TAB PO SCH (19:40)
[2023-02-01] MEDS: LOSARTAN POTASSIUM 50 MG TAB PO SCH (19:40)
[2023-02-01] MEDS: GABAPENTIN 100 MG CAP PO SCH (19:40)
[2023-02-01] MEDS: DOCUSATE SODIUM 100 MG CAP PO SCH (19:41)
[2023-02-01] MEDS: LOVASTATIN 20 MG TAB PO SCH (19:41)
[2023-02-01] MEDS: CHOLECALCIFEROL 1,000 UNITS 25 MCG TAB PO SCH (19:41)
[2023-02-01] MEDS ORDERED: LANTUS PER UNIT CHARGE SQ SCH ×2 (21:00)
[2023-02-02] MEDS: traMADol HCL 50 MG TABLET PO PRN ×4 (00:36→18:28)
[2023-02-02] MEDS: Scopolamine CHECK PATCH PLACEMENT SCH ×3 (00:37→15:19)
[2023-02-02] MEDS: SODIUM CHLORIDE 0.9% 1000ML 1,000 ML IV SCH (01:00)
[2023-02-02] MEDS: HYDROmorphone INJ 0.5 MG/0.5 ML SYR IV PRN ×4 (01:26→19:56)
[2023-02-02] MEDS: ceFAZolin 2000MG 2,000 MG/15 ML SYR IV SCH (01:28)
[2023-02-02] MEDS: ACETAMINOPHEN 500 MG TAB PO SCH ×3 (05:47→22:13)
[2023-02-02] MEDS: LEVOTHYROXINE SODIUM 200 MCG TABLET PO SCH (05:47)
[2023-02-02 07:55] LABS: Hematocrit (blood only) 29.7 % (37.0-47.0); Hemoglobin 9.1 g/dl (12.0-16.0); Mean Corpuscular Hemoglobin 24.7 pg (25.0-34.0); Mean Corpuscular Hgb Conc 30.6 g/dL (32.0-36.0); Mean Corpuscular Volume 80.5 fL (80.0-100.0); Mean Platelet Volume 9.5 fL (9.4-12.4); Platelet Count 390 K/uL (130-400); RDW Coefficient of Variation 17.3 % (11.5-14.5); RDW Standard Deviation 50.7 fL (36.4-46.3); Red Blood Count 3.69 M/uL (4.20-5.40); White Blood Count 13.21 K/ul (4.8-10.8)
[2023-02-02 08:06] LABS: BUN Creatinine Ratio 38.3 (10-20); Calcium 9.8 mg/dl (8.6-10.3); Est GFR (African American) 122.7 ml/min; Est GFR (Non-African American) 105.9 ml/min
[2023-02-02 08:25] LABS: Ferritin 11.1 ng/ml (8-388)
[2023-02-02] MEDS: INSULIN ASPART PER UNIT CHARGE SC SCH ×4 (08:31→20:41)
[2023-02-02] MEDS: DOCUSATE SODIUM 100 MG CAP PO SCH ×2 (08:32→20:03)
[2023-02-02] MEDS: MULTIVITAMIN TAB PO SCH (08:33)
[2023-02-02] MEDS: ASCORBIC ACID 500 MG TAB PO SCH ×2 (08:33→18:24)
[2023-02-02] MEDS: PANTOprazole 40 MG TAB PO SCH (08:33)
[2023-02-02] MEDS: LORATADINE 10 MG TAB PO SCH (08:33)
[2023-02-02] MEDS: FERROUS GLUCONATE 324 MG TAB PO SCH ×2 (08:33→18:24)
--- NOTE | 2023-02-02 08:55 | Orthopedic Progress Note ---
Date of Service February 02, 2023 Assessment & Plan (1) Osteoarthritis of left knee: Plan: POD #1 s/p L TKA, with post-op pain. Resume diet. WBAT with walker. OOB to chair. Continue pain control. Check labs tomorrow. DVT prophylaxis: TEDs 3 weeks, foot pumps while in hospital, Eliquis 2.5 mg BID for 6 weeks. Continue Prevena Appreciate Medicine input. Vit D low, will supplement and will f/u with pcp PT/OT. Re-check in pm D/C planning. Admission and Anticipated Discharge Date Admission Date: February 01, 2023 Subjective Much improved burning pain. Concerned that not able lift her leg on her own. Physical Exam Physical Exam: LLE: BCR < 2 sec. Sensation to light touch intact distally. Wiggling ankle and toes. Calf soft and non-tender. Dressing is clean, dry, intact. Unable to preform straight leg raise. Prevena functioning Results & Data Vital Signs (Past 12 Hours) Vital Signs Temp Pulse Resp BP Pulse Ox O2 Del Method 02/02/23 05:49 36.6 C 88 18 153/85 H 94 Room Air 02/02/23 02:45 36.6 C 78 20 153/79 H 94 Room Air 02/01/23 22:01 37.4 C 77 20 132/77 94 Room Air Laboratory Results 02/02/23 02/02/23 02/02/23 Range/Units 07:17 06:47 06:47 WBC (4.8-10.8) K/ul RBC (4.20-5.40) M/uL Hgb (12.0-16.0) g/dl Hct (37.0-47.0) % MCV (80.0-100.0) fL MCH (25.0-34.0) pg MCHC (32.0-36.0) g/dL RDW Std Deviation (36.4-46.3) fL RDW Coeff of Richard (11.5-14.5) % Plt Count (130-400) K/uL MPV (9.4-12.4) fL Sodium (136-145) mmol/L Potassium (3.5-5.1) mmol/L Chloride (98-107) mmol/L Carbon Dioxide (21-32) mmol/L Anion Gap (3-11) BUN (6-23) mg/dl Creatinine (0.6-1.2) mg/dl Est Cr Clr Drug Dosing ml/min Est GFR ( Amer) ml/min Est GFR (Non-Af Amer) ml/min BUN/Creatinine Ratio (10-20) Glucose (70-99(Fasting)) mg/dl POC Glucose 148 H (70-99) mg/dl Calcium (8.6-10.3) mg/dl Iron (35-150) mcg/dl TIBC (250-450) mcg/dl Unsaturated IBC (155-355) mcg/dl Transferrin % Sat (15-50) % Ferritin (8-388) ng/ml Vitamin B12 236 (180-914) pg/ml 25-OH Vitamin D Total 23.9 L (30-100) ng/ml Blood Type Antibody Screen 02/02/23 02/02/23 02/01/23 Range/Units 06:47 06:47 20:37 WBC 13.21 H (4.8-10.8) K/ul RBC 3.69 L (4.20-5.40) M/uL Hgb 9.1 L (12.0-16.0) g/dl Hct 29.7 L (37.0-47.0) % MCV 80.5 (80.0-100.0) fL MCH 24.7 L (25.0-34.0) pg MCHC 30.6 L (32.0-36.0) g/dL RDW Std Deviation 50.7 H (36.4-46.3) fL RDW Coeff of Richard 17.3 H (11.5-14.5) % Plt Count 390 (130-400) K/uL MPV 9.5 (9.4-12.4) fL Sodium 134 L (136-145) mmol/L Potassium 4.0 (3.5-5.1) mmol/L Chloride 101 (98-107) mmol/L Carbon Dioxide 27 (21-32) mmol/L Anion Gap 6 (3-11) BUN 18 (6-23) mg/dl Creatinine 0.47 L (0.6-1.2) mg/dl Est Cr Clr Drug Dosing 172.0 ml/min Est GFR ( Amer) 122.7 ml/min Est GFR (Non-Af Amer) 105.9 ml/min BUN/Creatinine Ratio 38.3 H (10-20) Glucose 154 H (70-99(Fasting)) mg/dl POC Glucose 173 H (70-99) mg/dl Calcium 9.8 (8.6-10.3) mg/dl Iron 42 (35-150) mcg/dl TIBC 489 H (250-450) mcg/dl Unsaturated IBC 447 H (155-355) mcg/dl Transferrin % Sat 9 L (15-50) % Ferritin 11.1 (8-388) ng/ml Vitamin B12 (180-914) pg/ml 25-OH Vitamin D Total (30-100) ng/ml Blood Type Antibody Screen 02/01/23 02/01/23 02/01/23 Range/Units 16:58 13:50 12:08 WBC (4.8-10.8) K/ul RBC (4.20-5.40) M/uL Hgb (12.0-16.0) g/dl Hct (37.0-47.0) % MCV (80.0-100.0) fL MCH (25.0-34.0) pg MCHC (32.0-36.0) g/dL RDW Std Deviation (36.4-46.3) fL RDW Coeff of Richard (11.5-14.5) % Plt Count (130-400) K/uL MPV (9.4-12.4) fL Sodium (136-145) mmol/L Potassium (3.5-5.1) mmol/L Chloride (98-107) mmol/L Carbon Dioxide (21-32) mmol/L Anion Gap (3-11) BUN (6-23) mg/dl Creatinine (0.6-1.2) mg/dl Est Cr Clr Drug Dosing ml/min Est GFR ( Amer) ml/min Est GFR (Non-Af Amer) ml/min BUN/Creatinine Ratio (10-20) Glucose (70-99(Fasting)) mg/dl POC Glucose 157 H 139 H 138 H (70-99) mg/dl Calcium (8.6-10.3) mg/dl Iron (35-150) mcg/dl TIBC (250-450) mcg/dl Unsaturated IBC (155-355) mcg/dl Transferrin % Sat (15-50) % Ferritin (8-388) ng/ml Vitamin B12 (180-914) pg/ml 25-OH Vitamin D Total (30-100) ng/ml Blood Type Antibody Screen 02/01/23 Range/Units 07:12 WBC (4.8-10.8) K/ul RBC (4.20-5.40) M/uL Hgb (12.0-16.0) g/dl Hct (37.0-47.0) % MCV (80.0-100.0) fL MCH (25.0-34.0) pg MCHC (32.0-36.0) g/dL RDW Std Deviation (36.4-46.3) fL RDW Coeff of Richard (11.5-14.5) % Plt Count (130-400) K/uL MPV (9.4-12.4) fL Sodium (136-145) mmol/L Potassium (3.5-5.1) mmol/L Chloride (98-107) mmol/L Carbon Dioxide (21-32) mmol/L Anion Gap (3-11) BUN (6-23) mg/dl Creatinine (0.6-1.2) mg/dl Est Cr Clr Drug Dosing ml/min Est GFR ( Amer) ml/min Est GFR (Non-Af Amer) ml/min BUN/Creatinine Ratio (10-20) Glucose (70-99(Fasting)) mg/dl POC Glucose (70-99) mg/dl Calcium (8.6-10.3) mg/dl Iron (35-150) mcg/dl TIBC (250-450) mcg/dl Unsaturated IBC (155-355) mcg/dl Transferrin % Sat (15-50) % Ferritin (8-388) ng/ml Vitamin B12 (180-914) pg/ml 25-OH Vitamin D Total (30-100) ng/ml Blood Type A Positive Antibody Screen NEGATIVE
[2023-02-02] MEDS ORDERED: LANTUS PER UNIT CHARGE SQ SCH (09:00)
[2023-02-02] MEDS ORDERED: SPIRONOLACTONE 25 MG TAB PO SCH (09:00)
[2023-02-02] MEDS: APIXABAN 2.5 MG TAB PO SCH ×2 (09:21→20:03)
[2023-02-02] MEDS: FLUTICASONE PROPIONATE NA SPR 16 GM BTL SCH (09:21)
[2023-02-02] MEDS ORDERED: amLODIPine BESYLATE 5 MG TAB PO SCH (11:30)
--- NOTE | 2023-02-02 14:04 | Pharmacy Report ---
Pharmacy Glycemic Short Note 2 - Date of Service February 02, 2023 - Glycemic Short BSG Results (Last 24 hours): 02/01/23 02/01/23 02/02/23 16:58 20:37 06:47 Glucose 154 H POC Glucose 157 H 173 H 02/02/23 02/02/23 07:17 12:43 Glucose POC Glucose 148 H 138 H OUTPATIENT ANTIDIABETIC REGIMEN: * Tresiba 44 units SQ qAM * Trulicity 3mg SQ weekly * Jardiance 25mg PO qAM * Metformin 1gm PO BID * HbA1c: 6.4% (01/10/13) ASSESSMENT: * Ms Molina is a 62yo diabetic F, POD #1 s/p L TKA with Dr Rodriguez yesterday. * BSGs have been stable. * Pharmacy will continue to monitor and adjust regimen as indicated. PLAN FOR INPATIENT GLYCEMIC CONTROL: * Hold outpatient oral diabetes medications * Basal insulin * Lantus 35 units SQ daily * Bolus insulin * NovoLog per scale ACHS or Q6hrs while NPO * Goal Range: Low 110 mg/dL - High 140 mg/dL * Correction Factor: 30 mg/dL/unit * Nutritional / Prandial insulin per carb ratio of 1 unit per 9 grams CHO consumed
--- NOTE | 2023-02-02 14:35 | Hospitalist Progress Note ---
Date of Service February 02, 2023 Assessment & Plan (1) Osteoarthritis of left knee: Plan: s/p Left Total Knee Arthroplasty, Cemented.(Left) - Will Rodriguez MD. EBL 100cc Pain control/bowel regimen/PT/OT per primary service DVT proph ordered per ortho -TEDs 3 weeks, foot pumps while in hospital, Eliquis 2.5 mg BID for 6 weeks. Continue Prevena Of note, patient just had her RIGHT knee done in July with Dr Jennifer HUTCHINS to [place] and WBAT with walker Monitor labs on repeat (2) Diabetes mellitus: Plan: a1c 6.4, follows locally w/ endocrinology On metformin 1g BID, tresiba 44u QAM, jardiacne 25mg, trulicity 3mg Reporting good weight loss since being on the jardiacne -- recently was to be mounjaro but no coverage. prior endo note rec increase truclitity if ozempic not covered (she has not yet called about the ozempic -- if not covered, endo rec'ing increase truclicity to 4.5mg) Holding home meds, BSG AC/HS, SSI and glargine 35U daily Monitor BSG/consult pharm if needed (3) Hypertension: Plan: Chronic stable Continue amlodipine 5mg, losartan 100mg PM, spironolactone 25mg QAM Monitor labs Monitor BP -- currently 160/75 (4) Hyperparathyroidism: Plan: chronic following specialist in [place]/locally w/ endo for DM II as above Vit d level 23.9 given continued elevated calcium levels (on vit d 50mcg daily) (5) Hyperlipidemia: Plan: Chronic stable Last lipid profile 10/21 normal continue lovastatin 20mg daily (6) Hypothyroidism: Plan: Chronic stable surgically induced. tsh recently 0.168 however review of chart endo patient prefers following with specalist in [place]. to consider f/u locally if she is agreeable remains on Synthroid 200mcg daily in the meantime, consider reducing dose to 188mcg daily and repeating TFT outpatient? -> she wants to follow up with her provider in [place] (7) S/P thyroid surgery: Plan: 2000 Total Thyroidectomy Secondary thyroid CA. (8) Murmur: Plan: Likely chronic +murmur on exam, suspected systolic she notes her PCP had heard murmur and she reports having ECHO through PCP office Discussed likely aortic stenosis and volume status important to prevent lightheaded/dizziness as prior reports (none at present) (9) Anemia: Plan: Chronic stable Hgb pre-op testing 11.1, MCV borderline 80.9 Does have some generalized pallor on exam, and denied any bleeding issues w/ eliquis use w/ prior knee replacement check iron panel w/ am labs for completeness Iron normal, % saturation low at 9 elevated TIBC Recommend screening colonoscopy and follow up with PCP Plan Thank you for allowing the hospitalist service to participate in the care for Ms Molina. Please call or reconsult if further assistance is needed. Admission and Anticipated Discharge Date Admission Date: February 01, 2023 Subjective Patient seen this afternoon. she states she feels ok. She denies any chest pain, SOB or dyspnea. She admits to a cough but is not new for her and she follows with a sterile preparation technician and has an appt, coming up. She has not used the incentive spirometer because she doesn't want to cough. I explained the improtance of this to prevent a PN and she used it while I was in the room and stated she would continue to use it. She was up and walked the floor earlier. She is passing flatus but no BM. Review of Systems Review of Systems: denies any chest pain, sob dyspnea, denies any fevers, chills, nausea, vomiting, abdominal pain All other ROS negative unless stated + above Physical Exam Constitutional: WD/WN, vitals as above Neck: trachea midline, no thyromegaly Respiratory: normal respiratory effort, lungs clear to auscultation Cardiovascular: Rate/Rhythm: regular rate and regular rhythm Heart Sounds: normal S1, normal S2 and + murmur Gastrointestinal (Abdomen): normal bowel sounds, soft, nontender, no hepatosplenomegaly Musculoskeletal: ice and surgical dressing over left knee Neurologic: intact sensation and pulses Psychiatric: A+Ox3, euthymic affect Results & Data Results & Data Vital Signs (Past 12 Hours) Vital Signs Temp Pulse Resp BP Pulse Ox O2 Del Method 02/02/23 12:30 36.6 C 78 18 160/75 H 94 Room Air 02/02/23 05:49 36.6 C 88 18 153/85 H 94 Room Air 02/02/23 02:45 36.6 C 78 20 153/79 H 94 Room Air Laboratory Results Abnormal lab results 02/01/23 02/01/23 02/02/23 Range/Units 16:58 20:37 06:47 WBC 13.21 H (4.8-10.8) K/ul RBC 3.69 L (4.20-5.40) M/uL Hgb 9.1 L (12.0-16.0) g/dl Hct 29.7 L (37.0-47.0) % MCH 24.7 L (25.0-34.0) pg MCHC 30.6 L (32.0-36.0) g/dL RDW Std Deviation 50.7 H (36.4-46.3) fL RDW Coeff of Richard 17.3 H (11.5-14.5) % Sodium (136-145) mmol/L Creatinine (0.6-1.2) mg/dl BUN/Creatinine Ratio (10-20) Glucose (70-99(Fasting)) mg/dl POC Glucose 157 H 173 H (70-99) mg/dl TIBC (250-450) mcg/dl Unsaturated IBC (155-355) mcg/dl Transferrin % Sat (15-50) % 25-OH Vitamin D Total (30-100) ng/ml 02/02/23 02/02/23 02/02/23 Range/Units 06:47 06:47 07:17 WBC (4.8-10.8) K/ul RBC (4.20-5.40) M/uL Hgb (12.0-16.0) g/dl Hct (37.0-47.0) % MCH (25.0-34.0) pg MCHC (32.0-36.0) g/dL RDW Std Deviation (36.4-46.3) fL RDW Coeff of Richard (11.5-14.5) % Sodium 134 L (136-145) mmol/L Creatinine 0.47 L (0.6-1.2) mg/dl BUN/Creatinine Ratio 38.3 H (10-20) Glucose 154 H (70-99(Fasting)) mg/dl POC Glucose 148 H (70-99) mg/dl TIBC 489 H (250-450) mcg/dl Unsaturated IBC 447 H (155-355) mcg/dl Transferrin % Sat 9 L (15-50) % 25-OH Vitamin D Total 23.9 L (30-100) ng/ml 02/02/23 Range/Units 12:43 WBC (4.8-10.8) K/ul RBC (4.20-5.40) M/uL Hgb (12.0-16.0) g/dl Hct (37.0-47.0) % MCH (25.0-34.0) pg MCHC (32.0-36.0) g/dL RDW Std Deviation (36.4-46.3) fL RDW Coeff of Richard (11.5-14.5) % Sodium (136-145) mmol/L Creatinine (0.6-1.2) mg/dl BUN/Creatinine Ratio (10-20) Glucose (70-99(Fasting)) mg/dl POC Glucose 138 H (70-99) mg/dl TIBC (250-450) mcg/dl Unsaturated IBC (155-355) mcg/dl Transferrin % Sat (15-50) % 25-OH Vitamin D Total (30-100) ng/ml PG Care Time/CCT Total # of Minutes Spent Total Time Spent with Patient: Total time spent is greater than 50% in coordination of care (as documented) at patient's floor/unit and/or counseling patient: Coding Level of Care Code 89258 SUB INP/OBS CARE 09/22MIN Diagnoses Osteoarthritis of left knee M17.12 Diabetes mellitus E11.9 Hypertension I10 Hyperparathyroidism E21.3 Hyperlipidemia E78.5 Hypothyroidism E03.9 S/P thyroid surgery Z98.890 Murmur R01.1 Anemia D64.9
[2023-02-02] MEDS: CHOLECALCIFEROL 1,000 UNITS 25 MCG TAB PO SCH (20:02)
[2023-02-02] MEDS: SENNA 8.6 MG TAB PO SCH (20:02)
[2023-02-02] MEDS: GABAPENTIN 100 MG CAP PO SCH (20:03)
[2023-02-02] MEDS: LOSARTAN POTASSIUM 50 MG TAB PO SCH (20:04)
[2023-02-02] MEDS: LOVASTATIN 20 MG TAB PO SCH (20:04)
[2023-02-03] MEDS: HYDROmorphone INJ 0.5 MG/0.5 ML SYR IV PRN (00:30)
[2023-02-03] MEDS: Scopolamine CHECK PATCH PLACEMENT SCH ×2 (00:31→08:38)
[2023-02-03] MEDS: ACETAMINOPHEN 500 MG TAB PO SCH (05:29)
[2023-02-03] MEDS: LEVOTHYROXINE SODIUM 200 MCG TABLET PO SCH (05:30)
[2023-02-03 06:41] LABS: Basophils # (auto) 0.05 K/uL (0-0.2); Basophils % (auto) 0.4 %; Eosinophils # (auto) 0.05 K/uL (0-0.50); Eosinophils % (auto) 0.4 %; Hematocrit (blood only) 30.2 % (37.0-47.0); Hemoglobin 9.2 g/dl (12.0-16.0); Immature Granulocytes # (auto) 0.09 K/uL (0.01-0.20); Immature Granulocytes % (auto) 0.7 %; Lymphocytes % (auto) 10.7 %; Mean Corpuscular Hemoglobin 24.6 pg (25.0-34.0); Mean Corpuscular Hgb Conc 30.5 g/dL (32.0-36.0); Mean Corpuscular Volume 80.7 fL (80.0-100.0); Mean Platelet Volume 9.1 fL (9.4-12.4); Monocytes % (auto) 12.9 %; Neutrophils # (auto) 9.84 K/uL (1.40-6.50); Neutrophils % (auto) 74.9 %; Platelet Count 371 K/uL (130-400); RDW Coefficient of Variation 17.6 % (11.5-14.5); RDW Standard Deviation 51.3 fL (36.4-46.3); Red Blood Count 3.74 M/uL (4.20-5.40); White Blood Count 13.13 K/ul (4.8-10.8)
[2023-02-03 08:22] LABS: Calcium 9.9 mg/dl (8.6-10.3); Potassium 4.2 mmol/L (3.5-5.1)
[2023-02-03 08:27] LABS: BUN Creatinine Ratio 27.5 (10-20); Creatinine Clr Calc Pharmacy 158.5 ml/min; Est GFR (African American) 119.4 ml/min; Est GFR (Non-African American) 103.1 ml/min
[2023-02-03] MEDS: INSULIN ASPART PER UNIT CHARGE SC SCH (08:29)
[2023-02-03] MEDS: ASCORBIC ACID 500 MG TAB PO SCH (08:38)
[2023-02-03] MEDS: MULTIVITAMIN TAB PO SCH (08:38)
[2023-02-03] MEDS: FERROUS GLUCONATE 324 MG TAB PO SCH (08:38)
[2023-02-03] MEDS: DOCUSATE SODIUM 100 MG CAP PO SCH (08:38)
[2023-02-03] MEDS: LORATADINE 10 MG TAB PO SCH (08:38)
[2023-02-03] MEDS: PANTOprazole 40 MG TAB PO SCH (08:38)
[2023-02-03] MEDS: APIXABAN 2.5 MG TAB PO SCH (08:38)
[2023-02-03] MEDS: FLUTICASONE PROPIONATE NA SPR 16 GM BTL SCH (08:38)
[2023-02-03] MEDS ORDERED: LANTUS PER UNIT CHARGE SQ SCH (09:00)
[2023-02-03] MEDS: traMADol HCL 50 MG TABLET PO PRN (09:29)
--- NOTE | 2023-02-03 09:50 | Orthopedic Progress Note ---
Date of Service February 03, 2023 Assessment & Plan (1) S/P total knee replacement using cement: Plan: The patient was educated regarding today's findings. Conservative care measures were discussed. She feels ready for discharge to home. Order was written so that she may be discharged after the physical therapy is completed. Continue on Eliquis twice daily for 6 weeks. Prescription was sent to her pharmacy. She was also prescribed Tylenol 3, as this is the only narcotic that works well for her. Continue with ice and elevation. Keep the Prevena wound VAC in place and dry until removed next week. Follow-up appointment has been made. Continue with ice and elevation frequently to reduce pain and swelling. Call the office with any other concerns. Written discharge instructions have been provided. Admission and Anticipated Discharge Date Admission Date: February 01, 2023 Subjective This 62-year-old female is seen today in her room. She is postop day 2 for left total knee arthroplasty. Her is in the room today. She states she did have some nausea earlier, but none currently. Denies any chest pain, shortness of breath, vomiting, or significant abdominal pain. Her left knee pain is much better today. She feels ready for discharge to home. No other complaints. She is waiting for therapy at this time. Review of Systems Review of Systems: Unchanged from yesterday. Physical Exam Physical Exam: General: Well-developed, well-nourished, obese middle-aged female, in no acute distress. Sitting in bed. Alert and oriented. Skin: Warm and dry with good turgor. No rashes or lesions. No significant ecchymosis or edema. Prevena wound VAC is in place on the left leg. Musculoskeletal: The patient has intact motor function of both lower extremities for ankle motion. She has intact flexion and extension of both knees. Full flexion was not attempted. She does have full terminal extension. Neurologic: Gross sensation is intact across both lower extremities by soft touch. Peripheral pulses are 2+. Results & Data Vital Signs (Past 12 Hours) Vital Signs Temp Pulse Resp BP Pulse Ox O2 Del Method 02/03/23 07:49 36.5 C 86 16 149/77 H 95 Room Air Laboratory Results CBC obtained this morning shows a white count of 13.13. H&H of 9.2 and 30.2. Platelets normal at 371,000. PRP obtained today shows a sodium of 131. Potassium 4.2, chloride 98, CO2 25. BUN of 14 with creatinine 0.51. Glucose 169.
--- NOTE | 2023-02-04 15:47 | Discharge Summary ---
Date of Service February 04, 2023 Admission HPI Per Admitting Provider Patient was admitted to [facility] after undergoing an elective left total knee arthroplasty by Dr. Rodriguez on February 01, 2023. Her surgery was performed with spinal anesthetic and peripheral nerve block. She tolerated the procedure well without any intraoperative complications. Her postoperative x-rays showed a stable prosthesis. She was allowed out of bed, weight-bear as tolerated on her left lower extremity with the assistance of a walker. On postoperative day 1 her postoperative dressings remained intact. Her Prevena was in place. She was started on Eliquis 2.5 mg p.o. twice daily which will be continued for 6 weeks after surgery. She did have a lot of pain on postoperative day 1 and into postoperative day 2. She does have reactions to opioid medications and is only limited to being able to take Tylenol 3. She tolerated regular diet during her inpatient stay. Her home medications were continued. She was seen and evaluated by physical therapy and Occupational Therapy. She was seen by the director social and assistant case manager for disposition needs. On postoperative day 2 her pain was much better controlled and she was safe and physical therapy and Occupational Therapy and was deemed safe for discharge to her home. She was discharged to her home in stable condition on February 03, 2023. Discharge instructions were reviewed. Discharge Data Consultations 01/27/23 16:12 Consult Hospitalist Routine Procedures Performed Operation Date: 02/01/23 09:10 Actual Procedures p Left Total Knee Arthroplasty, Cemented.(Left) - Will Rodriguez MD Hospital Course (1) S/P total knee replacement using cement: The patient was educated regarding today's findings. Conservative care measures were discussed. She feels ready for discharge to home. Order was written so that she may be discharged after the physical therapy is completed. Continue on Eliquis twice daily for 6 weeks. Prescription was sent to her pharmacy. She was also prescribed Tylenol 3, as this is the only narcotic that works well for her. Continue with ice and elevation. Keep the Prevena wound VAC in place and dry until removed next week. Follow-up appointment has been made. Continue with ice and elevation frequently to reduce pain and swelling. Call the office with any other concerns. Written discharge instructions have been provided.
== END 2023-02-03 11:59 | disposition home health service (06) ==
LOC: 3E 06:42 → ASU 06:42